=== PATIENT | female | born 1985 | race Two or more races ===

== ENCOUNTER 2016-08-28 17:34 | Emergency (ER) | payer MEDICAID ==
[~2016-08-28] VITALS: Ht 154.9 cm; Wt 104.3 kg
[2016-08-29] MEDS ORDERED: KETOROLAC TROMETH 30 MG/ML 1ML VIAL IV ONE
[2016-08-29] MEDS ORDERED: HYDROmorphone HCL 2 MG/ML VL IM ONE
[2016-08-29] MEDS ORDERED: ONDANSETRON ODT 4 MG TAB PO ONE
[2016-08-29 01:17] VITALS: BP 116/69
== END 2016-08-29 01:47 | disposition home or self-care (01) ==
LOC: ER 17:39
DX: G43.001 Migraine without aura, not intractable, with status migrainosus (principal); M19.90 Unspecified osteoarthritis, unspecified site; R62.50 Unspecified lack of expected normal physiological development in childhood
CPT/HCPCS: 96372; 96374; 99284; J1170; J1885; Q0162

== ENCOUNTER 2017-06-13 11:39 | Emergency (ER) | payer MEDICAID ==
[~2017-06-13] VITALS: Ht 154.9 cm; Wt 108.9 kg
[2017-06-13 11:45] VITALS: BP 117/61
[2017-06-13] MEDS ORDERED: cefTRIAXone SOD 1,000 MG VL IM ONE (13:00)
[2017-06-13] MEDS ORDERED: methylPREDNISolone SOD SUCC 125 MG/2 ML VL IM ONE (13:00)
== END 2017-06-13 13:23 | disposition home or self-care (01) ==
LOC: ER 11:39
DX: J20.9 Acute bronchitis, unspecified (principal); J03.90 Acute tonsillitis, unspecified; H66.91 Otitis media, unspecified, right ear; J45.909 Unspecified asthma, uncomplicated; M19.90 Unspecified osteoarthritis, unspecified site; Z88.6 Allergy status to analgesic agent; Z91.013 Allergy to seafood
CPT/HCPCS: 71046; 96372; 99284; J0696; J2930

== ENCOUNTER 2019-03-18 09:06 | Day surgery (SDC) | payer MEDICAID ==
[2019-03-12 13:16] LABS: Basophils # (auto) 0.1 uL; Basophils % (auto) 0.8 % (0.0-2.0); Eosinophils # (auto) 0.2 uL; Eosinophils % (auto) 2.1 % (0.0-7.0); Hematocrit 41.7 % (36.0-46.0); Hemoglobin 13.8 g/dL (12.2-16.2); Lymphocytes # (auto) 2.9 uL; Lymphocytes % (auto) 30.6 % (10.0-50.0); Mean Corpuscular Hemoglobin 29.7 pg (28.0-32.0); Mean Corpuscular Hgb Conc. 33.2 g/dL (32.0-36.0); Mean Corpuscular Volume 89.5 fL (80.0-100.0); Monocytes # (auto) 0.5 uL; Monocytes % (auto) 5.5 % (0.0-12.0); Neutrophils # (auto) 5.8 uL; Platelet Count (auto) 363 10^3/uL (140-450); Red Blood Cells 4.66 10^6/uL (4.0-5.20); Red Cell Distribution Width 13.6 % (11.8-14.3); White Blood Cell 9.5 10^3/uL (4.4-10.8)
[2019-03-12 13:58] LABS: INR 0.93 (0.9-1.15); Partial Thromboplastin Time 29.9 sec (23.64-32.05)
[2019-03-12 14:03] LABS: Albumin 3.4 g/dL (3.4-5.0); BUN/Creatinine Ratio 13.5; Calcium 8.7 mg/dL (8.5-10.1); Potassium 3.8 mmol/L (3.5-5.1)
[2019-03-12 14:05] LABS: Bilirubin, Total 0.6 mg/dL (0.2-1.0); Total Protein 7.4 g/dL (6.4-8.2)
[~2019-03-18] VITALS: Ht 154.9 cm; Wt 102.1 kg
[~2019-03-18 09:06] MED LIST: ALBUAER3 IN; ARIP1TAB9 PO; DICL1GEL35 TD; FLUT0.05 NAS; RIZA10TA24 OR; TRAM50TA2 PO
[2019-03-18] MEDS ORDERED: PROPOFOL 10 MG/ML 20 ML IV ONE (09:07)
[2019-03-18] MEDS ORDERED: ceFAZolin 1GM/50ML 50 ML IV ONE (10:11)
[2019-03-18] MEDS ORDERED: SODIUM CHLORIDE LOCK 10 ML ONE (11:22)
[2019-03-18] MEDS ORDERED: fentaNYL CITRATE 100 MCG/2 ML VL ONE (11:22)
[2019-03-18] MEDS ORDERED: ONDANSETRON HCL 4 MG/2 ML VIAL ONE (11:22)
[2019-03-18] MEDS ORDERED: MIDAZOLAM HCL 1MG/1ML-2 ML VIAL ONE (11:22)
[2019-03-18] MEDS ORDERED: KETOROLAC TROMETH 30 MG/ML 1ML VIAL IV ONE (11:45)
[2019-03-18] MEDS ORDERED: MORPHINE SULFATE 4 MG/ML SYR/VIAL IV PRN (11:45)
[2019-03-18] MEDS ORDERED: methylPREDNISolone ACETATE 80 MG/ML VL ONE (12:37)
[2019-03-18 13:29] VITALS: BP 111/74
== END 2019-03-18 13:46 | disposition home or self-care (01) ==
LOC: SUR 09:06
PROVIDERS: ATTEND Podiatrist Foot & Ankle Surgery
DX: G57.51 Tarsal tunnel syndrome, right lower limb (principal); J45.909 Unspecified asthma, uncomplicated; M19.90 Unspecified osteoarthritis, unspecified site; F79 Unspecified intellectual disabilities; F90.9 Attention-deficit hyperactivity disorder, unspecified type; F20.9 Schizophrenia, unspecified; E66.01 Morbid (severe) obesity due to excess calories; Z88.5 Allergy status to narcotic agent; Z98.890 Other specified postprocedural states; Z68.41 Body mass index [BMI] 40.0-44.9, adult
CPT/HCPCS: 27626; 36415; 80053; 84702; 85025; 85610; 85730; 88304; J0690; J1040; J2250; J2405; J2704; J3010; L3260

== ENCOUNTER 2019-04-12 09:24 | Emergency (ER) | payer MEDICAID ==
[~2019-04-12] VITALS: Ht 154.9 cm; Wt 106.6 kg
[2019-04-12 09:51] LABS: Basophils # (auto) 0.1 uL; Basophils % (auto) 0.6 % (0.0-2.0); Eosinophils # (auto) 0.3 uL; Eosinophils % (auto) 2.4 % (0.0-7.0); Hematocrit 37.7 % (36.0-46.0); Hemoglobin 12.8 g/dL (12.2-16.2); Lymphocytes # (auto) 2.2 uL; Lymphocytes % (auto) 17.3 % (10.0-50.0); Mean Corpuscular Hemoglobin 30.3 pg (28.0-32.0); Monocytes # (auto) 0.8 uL; Monocytes % (auto) 6.5 % (0.0-12.0); Neutrophils # (auto) 9.3 uL; Neutrophils % (auto) 73.2 % (37.0-80.0); Platelet Count (auto) 319 10^3/uL (140-450); Red Blood Cells 4.24 10^6/uL (4.0-5.20); Red Cell Distribution Width 13.9 % (11.8-14.3); White Blood Cell 12.7 10^3/uL (4.4-10.8)
[2019-04-12 10:08] LABS: Alanine Aminotransferase 16 U/L (13-56); Anion Gap 6 (5-15); Aspartate Aminotransferase 10 U/L (15-37); BUN/Creatinine Ratio 12.1; Blood Urea Nitrogen 7 mg/dL (7-18); Calcium 8.1 mg/dL (8.5-10.1); Carbon Dioxide 25 mmol/L (21-32); Chloride 110 mmol/L (98-107); GFR African American 154 mL/min; GFR Non-African American 127 mL/min; Glucose 94 mg/dL (74-106); Potassium 3.3 mmol/L (3.5-5.1); Sodium 141 mmol/L (136-145)
[2019-04-12 10:16] LABS: Alkaline Phosphatase 145 U/L (45-117); Bilirubin, Total 0.6 mg/dL (0.2-1.0); Total Protein 7.2 g/dL (6.4-8.2)
[2019-04-12 10:23] LABS: Urine Bacteria FEW /hpf (None Seen); Urine Blood 1+ /uL (Negative); Urine Hyaline Cast FEW /lpf (0 - 2); Urine Mucus FEW (None Seen); Urine Specific Gravity 1.012 (1.001-1.035); Urine WBC 2 /hpf (0 - 5)
[2019-04-12] MEDS ORDERED: POTASSIUM EFFERVESENT TAB 25 MEQ PO ONE (10:45)
[2019-04-12 14:00] VITALS: BP 103/50
== END 2019-04-12 15:09 | disposition home or self-care (01) ==
LOC: ER 09:24
DX: R10.84 Generalized abdominal pain (principal); E46 Unspecified protein-calorie malnutrition; E87.6 Hypokalemia; J45.909 Unspecified asthma, uncomplicated; R19.7 Diarrhea, unspecified; R42 Dizziness and giddiness; R11.2 Nausea with vomiting, unspecified
CPT/HCPCS: 36415; 71045; 74176; 80053; 81001; 84484; 85025

== ENCOUNTER → 2020-06-28 | Outpatient (CLI) | payer MEDICAID ==
[~2020-06-28] MED LIST changes: -DICL1GEL35 TD; +DICL1GEL50 TD; -RIZA10TA24 OR; +RIZA10TA50 OR
== END | disposition home or self-care (01) ==
LOC: LAB 11:19
PROVIDERS: ATTEND Podiatrist
DX: L57.0 Actinic keratosis (principal)

== ENCOUNTER 2021-03-02 12:01 | Emergency (ER) | payer MEDICARE, MEDICAID ==
[~2021-03-02] VITALS: Ht 154.9 cm; Wt 108.9 kg
[2021-03-02] MEDS ORDERED: methylPREDNISolone SOD SUCC 125 MG/2 ML VL IM ONE (12:15)
[2021-03-02] MEDS ORDERED: IPRATROPIUM BROM 0.5 MG/2.5ML INH SOL NEB ONE (12:15)
[2021-03-02] MEDS ORDERED: ALBUTEROL SULF 2.5 MG/0.5ML(0.5%) NEB SOLN NEB ONE (12:15)
[2021-03-02 13:39] LABS: Basophils # (auto) 0.1 10 ^3/uL (0-0.2); Eosinophils # (auto) 0.5 10 ^3/uL (0-0.8); Eosinophils % (auto) 3.9 % (0.0-7.0); Hematocrit 38.3 % (36.0-46.0); Hemoglobin 12.8 g/dL (12.2-16.2); Lymphocytes # (auto) 3.2 10 ^3/uL (0.4-5.4); Lymphocytes % (auto) 23.4 % (10.0-50.0); Mean Corpuscular Hemoglobin 28.2 pg (28.0-32.0); Mean Corpuscular Hgb Conc. 33.4 g/dL (32.0-36.0); Mean Corpuscular Volume 84.7 fL (80.0-100.0); Monocytes # (auto) 0.8 10 ^3/uL (0-1.3); Monocytes % (auto) 6.1 % (0.0-12.0); Neutrophils % (auto) 65.6 % (37.0-80.0); Nucleated Red Blood Cells % 0.1 %; Red Blood Cells 4.52 10^6/uL (4.0-5.20); Red Cell Distribution Width 16.3 % (11.8-14.3); White Blood Cell 13.7 10^3/uL (4.4-10.8)
[2021-03-02 13:47] LABS: Albumin 3.1 g/dL (3.4-5.0); Anion Gap 7 (5-15); Blood Urea Nitrogen 8 mg/dL (7-18); Calcium 8.4 mg/dL (8.5-10.1); Carbon Dioxide 26 mmol/L (21-32); Chloride 107 mmol/L (98-107); Glucose 92 mg/dL (74-106); Potassium 3.4 mmol/L (3.5-5.1); Sodium 140 mmol/L (136-145)
[2021-03-02 13:49] LABS: Alanine Aminotransferase 21 U/L (13-56); Aspartate Aminotransferase 13 U/L (15-37); BUN/Creatinine Ratio 13.3; GFR African American 146 mL/min; GFR Non-African American 121 mL/min
[2021-03-02 13:55] LABS: Alkaline Phosphatase 122 U/L (45-117); Bilirubin, Total 0.5 mg/dL (0.2-1.0)
[2021-03-02] MEDS ORDERED: POTASSIUM EFFERVESENT TAB 25 MEQ PO ONE (14:00)
[2021-03-02 15:21] VITALS: BP 126/54
== END 2021-03-02 16:07 | disposition home or self-care (01) ==
LOC: ER 12:01
DX: J45.901 Unspecified asthma with (acute) exacerbation (principal); R07.89 Other chest pain; E87.6 Hypokalemia; Z79.899 Other long term (current) drug therapy; Z88.8 Allergy status to other drugs, medicaments and biological substances; Z88.5 Allergy status to narcotic agent; Z91.013 Allergy to seafood
CPT/HCPCS: 36415; 71045; 80053; 84484; 85025; 93005; 94640; 96372; 99285; J2930; J7644

== ENCOUNTER 2021-10-26 07:59 | Emergency (ER) | payer MEDICARE, MEDICAID ==
[~2021-10-26] VITALS: Ht 154.9 cm; Wt 113.4 kg
[2021-10-26 08:10] VITALS: BP 111/46
[2021-10-26 08:47] LABS: Hematocrit 32.3 % (36.0-46.0); Hemoglobin 10.9 g/dL (12.2-16.2); Mean Corpuscular Hemoglobin 27.9 pg (28.0-32.0); Mean Corpuscular Hgb Conc. 33.6 g/dL (32.0-36.0); Mean Corpuscular Volume 83.2 fL (80.0-100.0); Red Blood Cells 3.89 10^6/uL (4.0-5.20); Red Cell Distribution Width 13.9 % (11.8-14.3); White Blood Cell 7.3 10^3/uL (4.4-10.8)
[2021-10-26 08:51] LABS: Band Neutrophils % (manual) 0; Basophils % (manual) 0 (0.0-2.0); Blast Cells 0; Metamyelocytes % 0; Myelocytes % 0; Promyelocytes % 0; Reactive Lymphocytes 0
[2021-10-26 09:10] LABS: Calcium 8.1 mg/dL (8.5-10.1); Potassium 3.7 mmol/L (3.5-5.1)
[2021-10-26 09:13] LABS: BUN/Creatinine Ratio 14.5; Bilirubin, Total 0.4 mg/dL (0.2-1.0); Total Protein 6.9 g/dL (6.4-8.2)
[2021-10-26 09:26] LABS: Eosinophils % (manual) 18 (0-7); Lymphocytes % (manual) 24 (10.0-50.0); Monocytes % (manual) 6 (0-12)
[2021-10-26] MEDS ORDERED: ALBUTEROL SULF 2.5 MG/0.5ML(0.5%) NEB SOLN NEB ONE (12:30)
[2021-10-26] MEDS ORDERED: IPRATROPIUM BROM 0.5 MG/2.5ML INH SOL NEB ONE (12:30)
[2021-10-26] MEDS ORDERED: MECLIZINE HCL 25 MG TAB PO ONE (12:30)
[2021-10-26] MEDS ORDERED: methylPREDNISolone SOD SUCC 125 MG/2 ML VL IV ONE (12:30)
[2021-10-26] MEDS ORDERED: methylPREDNISolone SOD SUCC 125 MG/2 ML VL IM ONE (16:30)
== END 2021-10-26 18:36 | disposition home or self-care (01) ==
LOC: ER 07:59
DX: U07.1 COVID-19 (principal); R42 Dizziness and giddiness; Q78.1 Polyostotic fibrous dysplasia; J45.909 Unspecified asthma, uncomplicated
CPT/HCPCS: 36415; 71045; 80053; 85007; 85027; 87070; 87426; 87880; 93005; 94640; 96372; 99285; J2930; J7644; J8597

== ENCOUNTER → 2022-11-23 | Outpatient (CLI) | payer OTHER, MEDICAID ==
[~2022-11-23] MED LIST changes: +ALBUTEROL SULF 2.5 MG/0.5ML(0.5%) NEB SOLN ONE; -DICL1GEL50 TD; +DICL1GEL73 TD
== END | disposition home or self-care (01) ==
LOC: RT 12:34
PROVIDERS: ATTEND Internal Medicine Pulmonary Disease
DX: R06.02 Shortness of breath (principal); R06.09 Other forms of dyspnea
CPT/HCPCS: 94060; 94727; 94729

== ENCOUNTER 2023-02-26 14:47 | Emergency (ER) | payer OTHER, MEDICAID ==
[~2023-02-26] VITALS: Ht 154.9 cm; Wt 106.7 kg
[~2023-02-26 14:47] MED LIST changes: -ALBUTEROL SULF 2.5 MG/0.5ML(0.5%) NEB SOLN ONE
[2023-02-26] MEDS ORDERED: IPRATROPIUM BROM 0.5 MG/2.5ML INH SOL NEB ONE (15:15)
[2023-02-26] MEDS ORDERED: methylPREDNISolone SOD SUCC 40 MG/ML VL IV ONE (15:15)
[2023-02-26] MEDS ORDERED: ALBUTEROL SULF 2.5 MG/0.5ML(0.5%) NEB SOLN NEB ONE (15:15)
[2023-02-26 15:42] LABS: Basophils # (auto) 0.1 10 ^3/uL (0-0.2); Basophils % (auto) 0.6 % (0.0-2.0); Eosinophils # (auto) 0.1 10 ^3/uL (0-0.8); Eosinophils % (auto) 1.2 % (0.0-7.0); Hematocrit 37.7 % (36.0-46.0); Hemoglobin 12.7 g/dL (12.2-16.2); Lymphocytes # (auto) 2.9 10 ^3/uL (0.4-5.4); Lymphocytes % (auto) 28.8 % (10.0-50.0); Mean Corpuscular Hemoglobin 29.1 pg (28.0-32.0); Mean Corpuscular Hgb Conc. 33.9 g/dL (32.0-36.0); Mean Corpuscular Volume 85.9 fL (80.0-100.0); Monocytes # (auto) 0.6 10 ^3/uL (0-1.3); Monocytes % (auto) 5.8 % (0.0-12.0); Neutrophils # (auto) 6.5 10 ^3/uL (1.6-8.6); Neutrophils % (auto) 63.6 % (37.0-80.0); Nucleated Red Blood Cells % 0.1 %; Red Blood Cells 4.38 10^6/uL (4.0-5.20); Red Cell Distribution Width 14.2 % (11.8-14.3); White Blood Cell 10.2 10^3/uL (4.4-10.8)
[2023-02-26 15:47] LABS: Alanine Aminotransferase 14 U/L (7-40); Albumin 4.2 g/dL (3.2-4.8); Alkaline Phosphatase 125 U/L (46-116); Anion Gap 5 (5-15); Aspartate Aminotransferase 13 U/L (13-40); BUN/Creatinine Ratio 12.8 (10.0-20.0); Bilirubin, Total 0.5 mg/dL (0.2-1.0); Blood Urea Nitrogen 11 mg/dL (9-23); Calcium 8.8 mg/dL (8.7-10.4); Carbon Dioxide 26 mmol/L (20-30); Chloride 109 mmol/L (98-107); Glucose 101 mg/dL (74-106); Potassium 3.8 mmol/L (3.5-5.1); Sodium 140 mmol/L (136-145); Total Protein 6.6 g/dL (5.7-8.2)
[2023-02-26] MEDS ORDERED: KETOROLAC TROMETH 30 MG/ML 1ML VIAL IV ONE (16:15)
[2023-02-26] MEDS ORDERED: PRED20TA2 PO (19:30)
[2023-02-26 22:03] VITALS: BP 116/66; PULSE 80; RESP 18; TEMP 98.1; O2SAT 96
== END 2023-02-26 21:43 | disposition home or self-care (01) ==
LOC: ER 14:47
DX: R06.00 Dyspnea, unspecified (principal); M19.90 Unspecified osteoarthritis, unspecified site; J45.909 Unspecified asthma, uncomplicated; F20.9 Schizophrenia, unspecified; J44.9 Chronic obstructive pulmonary disease, unspecified; Z98.890 Other specified postprocedural states
CPT/HCPCS: 36415; 36600; 71046; 80053; 82805; 83880; 84484; 85025; 85379; 93005; 94640; 96374; 96375; 99285; J1885; J2920; J7644

== ENCOUNTER 2023-10-31 17:31 | Inpatient (IN) | payer OTHER, MEDICAID ==
[~2023-10-31] VITALS: Ht 154.9 cm; Wt 110.3 kg
[~2023-10-31 17:31] MED LIST changes: -ARIP1TAB9 PO; +ARIP30TA2 PO; +PRED20TA2 PO
[2023-10-31 19:04] LABS: Urine Bacteria None Seen /hpf (None Seen)
[2023-10-31 19:16] LABS: Basophils # (auto) 0 10 ^3/uL (0-0.2); Eosinophils # (auto) 0 10 ^3/uL (0-0.8); Hemoglobin 13.4 g/dL (12.2-16.2); Monocytes # (auto) 0.5 10 ^3/uL (0-1.3); Neutrophils # (auto) 18.4 10 ^3/uL (1.6-8.6)
[2023-10-31 19:19] LABS: Basophils % (auto) 0.1 % (0.0-2.0); Hematocrit 40.4 % (36.0-46.0); Lymphocytes # (auto) 1.5 10 ^3/uL (0.4-5.4); Lymphocytes % (auto) 7.5 % (10.0-50.0); Mean Corpuscular Hemoglobin 29.1 pg (28.0-32.0); Mean Corpuscular Hgb Conc. 33.1 g/dL (32.0-36.0); Monocytes % (auto) 2.5 % (0.0-12.0); Neutrophils % (auto) 89.9 % (37.0-80.0); Red Blood Cells 4.59 10^6/uL (4.0-5.20); Red Cell Distribution Width 14.4 % (11.8-14.3); White Blood Cell 20.4 10^3/uL (4.4-10.8)
[2023-10-31 19:37] LABS: Alanine Aminotransferase 18 U/L (7-40); Albumin 4.4 g/dL (3.2-4.8); Alkaline Phosphatase 110 U/L (46-116); Anion Gap 8 (5-15); Aspartate Aminotransferase 10 U/L (13-40); Blood Urea Nitrogen 12 mg/dL (9-23); Calcium 9.7 mg/dL (8.7-10.4); Carbon Dioxide 22 mmol/L (20-30); Chloride 109 mmol/L (98-107); Glucose 117 mg/dL (74-106); Lipase 33 U/L (12-53); Potassium 4.4 mmol/L (3.5-5.1); Sodium 139 mmol/L (136-145)
[2023-10-31 19:38] LABS: Bilirubin, Total 0.7 mg/dL (0.2-1.0); Total Protein 7.3 g/dL (5.7-8.2)
[2023-10-31 19:43] LABS: Urine Blood 2+ /uL (Negative); Urine Clarity Clear (Clear); Urine Color Light-Yellow (Yellow); Urine Mucus FEW (None Seen); Urine Protein, UAD Negative (Negative); Urine Urobilinogen Normal (Negative); Urine WBC 2 /hpf (0 - 5); Urine pH 5.5 (5.0-9.0)
[2023-10-31] MEDS: metroNIDAZOLE 500MG/100ML 100 ML IV ONE (22:00)
[2023-10-31] MEDS ORDERED: TIOT17SP INH (22:54)
[2023-10-31] MEDS ORDERED: BUSP30TA PO (22:54)
[2023-10-31] MEDS ORDERED: METH-1181 PO (22:54)
[2023-10-31] MEDS ORDERED: NITROGLYCERIN 0.4 MG SL TAB SL PRN (23:15)
[2023-10-31] MEDS ORDERED: MORPHINE SULFATE INJ 2 MG/ml SYRG IV PRN (23:15)
[2023-10-31] MEDS ORDERED: CLON-853 PO (23:26)
[2023-10-31] MEDS ORDERED: TOLT1CAP29 PO (23:26)
[2023-10-31] MEDS ORDERED: LAMO25TA27 PO (23:26)
[2023-10-31] MEDS ORDERED: Rizatriptan Benzoate 10 MG TAB PO PRN (23:30)
[2023-10-31] MEDS ORDERED: IPRATROPIUM BROM 0.5 MG/2.5ML INH SOL NEB PRN (23:30)
[2023-11-01] VITALS (12 sets, daily range): BP systolic 101–111; BP diastolic 52–54; PULSE 52–82; RESP 14–20; TEMP 97.5–98.3; O2SAT 94–100
[2023-11-01] MEDS: SODIUM CHLORIDE 0.9% 1,000 ML IV ONE (00:31)
[2023-11-01] MEDS: levoFLOXacin 500MG 100 ML IV ONE (00:53)
[2023-11-01] MEDS: KETOROLAC TROMETH 30 MG/ML 1ML VIAL IV ONE (00:53)
[2023-11-01] MEDS: IPRATROPIUM BROM 0.5 MG/2.5ML INH SOL NEB SCH (00:59)
[2023-11-01 03:01] LABS: Basophils # (auto) 0 10 ^3/uL (0-0.2); Eosinophils # (auto) 0 10 ^3/uL (0-0.8); Eosinophils % (auto) 0.1 % (0.0-7.0); Hematocrit 38.1 % (36.0-46.0); Hemoglobin 12.5 g/dL (12.2-16.2); White Blood Cell 18.6 10^3/uL (4.4-10.8)
[2023-11-01 03:04] LABS: Basophils % (auto) 0.1 % (0.0-2.0); Lymphocytes # (auto) 2.6 10 ^3/uL (0.4-5.4); Lymphocytes % (auto) 14.2 % (10.0-50.0); Mean Corpuscular Hemoglobin 29.2 pg (28.0-32.0); Mean Corpuscular Hgb Conc. 32.8 g/dL (32.0-36.0); Mean Corpuscular Volume 88.9 fL (80.0-100.0); Monocytes # (auto) 0.9 10 ^3/uL (0-1.3); Neutrophils % (auto) 80.6 % (37.0-80.0); Nucleated Red Blood Cells % 0.1 %; Red Blood Cells 4.28 10^6/uL (4.0-5.20); Red Cell Distribution Width 14.5 % (11.8-14.3)
[2023-11-01 03:09] LABS: Alanine Aminotransferase 14 U/L (7-40); Alkaline Phosphatase 101 U/L (46-116); Anion Gap 11 (5-15); Aspartate Aminotransferase < 8 U/L (13-40); Bilirubin, Total 0.9 mg/dL (0.2-1.0); Blood Urea Nitrogen 11 mg/dL (9-23); Calcium 9.1 mg/dL (8.7-10.4); Carbon Dioxide 22 mmol/L (20-30); Chloride 108 mmol/L (98-107); Glucose 105 mg/dL (74-106); Potassium 3.8 mmol/L (3.5-5.1); Sodium 141 mmol/L (136-145); Total Protein 6.6 g/dL (5.7-8.2)
[2023-11-01] MEDS: metroNIDAZOLE 500MG/100ML 100 ML IV SCH (06:00)
[2023-11-01] MEDS: METHOCARBAMOL 500 MG TAB PO SCH (06:59)
[2023-11-01] MEDS: SODIUM CHLORIDE 0.9% 1,000 ML IV SCH (06:59)
[2023-11-01] MEDS: OXYBUTYNIN CHL 5 MG TAB PO SCH (06:59)
[2023-11-01] MEDS: ALBUTEROL SULF 2.5 MG/0.5ML(0.5%) NEB SOLN NEB PRN (07:37)
[2023-11-01] MEDS: lamoTRIgine 25 MG TAB PO SCH (13:45)
[2023-11-01] MEDS: busPIRone HCL 10 MG TAB PO SCH (13:45)
[2023-11-01] MEDS: ONDANSETRON HCL 4 MG/2 ML VIAL IV PRN (16:39)
[2023-11-01] MEDS: clonazePAM 0.5 MG TAB PO PRN (16:39)
[2023-11-01] MEDS: KETOROLAC TROMETH 30 MG/ML 1ML VIAL IV PRN (16:39)
[2023-11-01] MEDS: metroNIDAZOLE 500 MG TAB PO SCH (21:45)
[2023-11-01] MEDS: PIPERACILLIN-TAZOB 3.375GM 100 ML IV SCH (21:46)
[2023-11-02] VITALS (16 sets, daily range): BP systolic 103–132; BP diastolic 47–69; PULSE 47–84; RESP 16–20; TEMP 97.5–98.3; O2SAT 95–99
[2023-11-02] MEDS: BISACODYL 10 MG RECT SUPP PR ONE (13:30)
[2023-11-02 14:11] LABS: Basophils # (auto) 0.1 10 ^3/uL (0-0.2); Basophils % (auto) 0.3 % (0.0-2.0); Eosinophils # (auto) 0.1 10 ^3/uL (0-0.8); Eosinophils % (auto) 0.4 % (0.0-7.0); Lymphocytes # (auto) 3.3 10 ^3/uL (0.4-5.4); Lymphocytes % (auto) 21.5 % (10.0-50.0); Mean Corpuscular Hemoglobin 29.8 pg (28.0-32.0); Mean Corpuscular Hgb Conc. 33.3 g/dL (32.0-36.0); Mean Corpuscular Volume 89.5 fL (80.0-100.0); Monocytes # (auto) 0.9 10 ^3/uL (0-1.3); Monocytes % (auto) 5.9 % (0.0-12.0); Neutrophils # (auto) 11.1 10 ^3/uL (1.6-8.6); Neutrophils % (auto) 71.9 % (37.0-80.0); Red Blood Cells 4.03 10^6/uL (4.0-5.20); Red Cell Distribution Width 14.6 % (11.8-14.3); White Blood Cell 15.5 10^3/uL (4.4-10.8)
[2023-11-03] VITALS (18 sets, daily range): BP systolic 107–129; BP diastolic 56–73; PULSE 54–95; RESP 16–20; TEMP 97.6–98.4; O2SAT 94–99
[2023-11-04] VITALS (17 sets, daily range): BP systolic 118–127; BP diastolic 68–75; PULSE 58–109; RESP 16–20; TEMP 97.7–98.1; O2SAT 93–100
[2023-11-04 06:54] LABS: Basophils # (auto) 0.1 10 ^3/uL (0-0.2); Basophils % (auto) 0.5 % (0.0-2.0); Eosinophils # (auto) 0.1 10 ^3/uL (0-0.8); Eosinophils % (auto) 0.5 % (0.0-7.0); Hematocrit 36.2 % (36.0-46.0); Hemoglobin 12.1 g/dL (12.2-16.2); Lymphocytes # (auto) 3.4 10 ^3/uL (0.4-5.4); Lymphocytes % (auto) 22.2 % (10.0-50.0); Mean Corpuscular Hemoglobin 30.1 pg (28.0-32.0); Mean Corpuscular Hgb Conc. 33.4 g/dL (32.0-36.0); Monocytes # (auto) 0.9 10 ^3/uL (0-1.3); Neutrophils % (auto) 70.8 % (37.0-80.0); Red Blood Cells 4.02 10^6/uL (4.0-5.20); Red Cell Distribution Width 14.4 % (11.8-14.3)
[2023-11-04 07:13] LABS: White Blood Cell 15.5 10^3/uL (4.4-10.8)
[2023-11-04 10:08] LABS: Erythrocyte Sedimentation Rate 10 mm/hr (0-20)
[2023-11-04] MEDS: MEROPENEM 1GM IVPB 50 ML IV SCH (22:21)
[2023-11-05] VITALS (12 sets, daily range): BP systolic 105–134; BP diastolic 51–79; PULSE 73–98; RESP 16–20; TEMP 97.9–98.2; O2SAT 94–99
[2023-11-05 07:11] LABS: Basophils # (auto) 0.1 10 ^3/uL (0-0.2); Basophils % (auto) 0.4 % (0.0-2.0); Eosinophils # (auto) 0.1 10 ^3/uL (0-0.8); Eosinophils % (auto) 0.4 % (0.0-7.0); Hematocrit 36.5 % (36.0-46.0); Hemoglobin 11.8 g/dL (12.2-16.2); Lymphocytes # (auto) 3.1 10 ^3/uL (0.4-5.4); Lymphocytes % (auto) 16.5 % (10.0-50.0); Mean Corpuscular Hemoglobin 29.8 pg (28.0-32.0); Mean Corpuscular Hgb Conc. 32.2 g/dL (32.0-36.0); Mean Corpuscular Volume 92.6 fL (80.0-100.0); Monocytes # (auto) 1.3 10 ^3/uL (0-1.3); Monocytes % (auto) 7.1 % (0.0-12.0); Neutrophils # (auto) 14.1 10 ^3/uL (1.6-8.6); Neutrophils % (auto) 75.6 % (37.0-80.0); Red Blood Cells 3.94 10^6/uL (4.0-5.20); Red Cell Distribution Width 14.8 % (11.8-14.3); White Blood Cell 18.6 10^3/uL (4.4-10.8)
[2023-11-05 07:18] LABS: Anion Gap 9 (5-15); Calcium 8.8 mg/dL (8.7-10.4); Carbon Dioxide 24 mmol/L (20-30); Chloride 109 mmol/L (98-107); Potassium 3.8 mmol/L (3.5-5.1); Sodium 142 mmol/L (136-145)
[2023-11-05 07:24] LABS: Glucose 90 mg/dL (74-106)
[2023-11-05 07:29] LABS: BUN/Creatinine Ratio 6.7 (10.0-20.0); Blood Urea Nitrogen < 5 mg/dL (9-23)
[2023-11-05] MEDS: PHENAZOPYRIDINE HCL 100 MG TAB PO SCH (13:43)
[2023-11-06] VITALS (15 sets, daily range): BP systolic 100–125; BP diastolic 46–71; PULSE 66–111; RESP 17–20; TEMP 97.6–98.3; O2SAT 92–100
[2023-11-06 06:46] LABS: Basophils # (auto) 0.1 10 ^3/uL (0-0.2); Basophils % (auto) 0.4 % (0.0-2.0); Eosinophils # (auto) 0.1 10 ^3/uL (0-0.8); Eosinophils % (auto) 0.4 % (0.0-7.0); Hematocrit 34.6 % (36.0-46.0); Hemoglobin 11.7 g/dL (12.2-16.2); Lymphocytes # (auto) 3.2 10 ^3/uL (0.4-5.4); Lymphocytes % (auto) 20.9 % (10.0-50.0); Mean Corpuscular Hemoglobin 29.9 pg (28.0-32.0); Mean Corpuscular Hgb Conc. 33.7 g/dL (32.0-36.0); Mean Corpuscular Volume 88.6 fL (80.0-100.0); Monocytes # (auto) 0.9 10 ^3/uL (0-1.3); Monocytes % (auto) 6.2 % (0.0-12.0); Neutrophils # (auto) 10.9 10 ^3/uL (1.6-8.6); Neutrophils % (auto) 72.1 % (37.0-80.0); Red Blood Cells 3.91 10^6/uL (4.0-5.20); Red Cell Distribution Width 14.7 % (11.8-14.3); White Blood Cell 15.1 10^3/uL (4.4-10.8)
[2023-11-06 07:01] LABS: Anion Gap 2 (5-15); Carbon Dioxide 28 mmol/L (20-30); Chloride 111 mmol/L (98-107); INR 1.03 (0.9-1.15); Partial Thromboplastin Time 28.1 SEC (24.5-34.5); Potassium 3.8 mmol/L (3.5-5.1); Prothrombin Time 10.9 sec (9.3-11.8); Sodium 141 mmol/L (136-145)
[2023-11-06 07:03] LABS: Calcium 8.8 mg/dL (8.5-10.1)
[2023-11-06 07:07] LABS: Glucose 94 mg/dL (74-106)
[2023-11-06 07:15] LABS: BUN/Creatinine Ratio 7.2 (10.0-20.0); Blood Urea Nitrogen < 5 mg/dL (9-23)
[2023-11-06] MEDS ORDERED: fentaNYL CITRATE 100 MCG/2 ML VL ONE (13:10)
[2023-11-06] MEDS ORDERED: MIDAZOLAM HCL 2MG/2ML 2ml VIAL (1mg/ml) ONE (13:10)
[2023-11-06] MEDS ORDERED: GLYCOPYRROLATE 0.2 MG/ML 1ML VIAL ONE (13:11)
[2023-11-06] MEDS ORDERED: PROPOFOL 10 MG/ML 20 ML IV ONE (13:11)
[2023-11-06] MEDS ORDERED: ONDANSETRON HCL 4 MG/2 ML VIAL ONE (13:11)
[2023-11-06] MEDS ORDERED: FAMOTIDINE (10MG/ML) 2ML VL IV ONE (13:17)
[2023-11-06] MEDS: SUCRALFATE 1 GM/10 ML ORAL SUSP GT SCH (18:35)
[2023-11-07] VITALS (18 sets, daily range): BP systolic 92–142; BP diastolic 43–72; PULSE 63–103; RESP 16–18; TEMP 98.1–98.5; O2SAT 90–98
[2023-11-07 07:18] LABS: Basophils # (auto) 0 10 ^3/uL (0-0.2); Basophils % (auto) 0.3 % (0.0-2.0); Eosinophils # (auto) 0 10 ^3/uL (0-0.8); Hematocrit 36.1 % (36.0-46.0); Hemoglobin 12.2 g/dL (12.2-16.2); Lymphocytes # (auto) 0.9 10 ^3/uL (0.4-5.4); Lymphocytes % (auto) 5.4 % (10.0-50.0); Mean Corpuscular Hemoglobin 30.5 pg (28.0-32.0); Mean Corpuscular Hgb Conc. 33.7 g/dL (32.0-36.0); Mean Corpuscular Volume 90.4 fL (80.0-100.0); Monocytes # (auto) 0.4 10 ^3/uL (0-1.3); Monocytes % (auto) 2.6 % (0.0-12.0); Neutrophils # (auto) 15.8 10 ^3/uL (1.6-8.6); Neutrophils % (auto) 91.7 % (37.0-80.0); Red Cell Distribution Width 14.5 % (11.8-14.3); White Blood Cell 17.2 10^3/uL (4.4-10.8)
[2023-11-07] MEDS: BUDESONIDE (INHALATION) 0.5 MG/2 ML NEB NEB SCH (12:56)
[2023-11-08] VITALS (9 sets, daily range): BP systolic 106–114; BP diastolic 52–59; PULSE 62–74; RESP 16–20; TEMP 97.8–98.5; O2SAT 94–98
[2023-11-08] MEDS: ONDANSETRON HCL 4 MG/2 ML VIAL IV ONE (03:08)
[2023-11-08 07:47] LABS: Basophils # (auto) 0.1 10 ^3/uL (0-0.2); Basophils % (auto) 0.4 % (0.0-2.0); Eosinophils # (auto) 0 10 ^3/uL (0-0.8); Eosinophils % (auto) 0.1 % (0.0-7.0); Hematocrit 34.2 % (36.0-46.0); Hemoglobin 11.1 g/dL (12.2-16.2); Lymphocytes # (auto) 4.3 10 ^3/uL (0.4-5.4); Lymphocytes % (auto) 22.6 % (10.0-50.0); Mean Corpuscular Hemoglobin 29.8 pg (28.0-32.0); Mean Corpuscular Hgb Conc. 32.5 g/dL (32.0-36.0); Mean Corpuscular Volume 91.5 fL (80.0-100.0); Monocytes # (auto) 1.2 10 ^3/uL (0-1.3); Monocytes % (auto) 6.4 % (0.0-12.0); Neutrophils # (auto) 13.3 10 ^3/uL (1.6-8.6); Neutrophils % (auto) 70.5 % (37.0-80.0); Nucleated Red Blood Cells % 0.4 %; Red Blood Cells 3.74 10^6/uL (4.0-5.20); Red Cell Distribution Width 15.1 % (11.8-14.3); White Blood Cell 18.9 10^3/uL (4.4-10.8)
[2023-11-08 08:29] LABS: Platelet Estimate Adequate
[2023-11-08] MEDS ORDERED: MET500T PO (09:58)
[2023-11-08] MEDS ORDERED: CIPR500T4 PO (09:58)
== END 2023-11-08 11:08 | disposition home or self-care (01) | DRG 872 ==
LOC: ER 17:31 → TELE 23:17 → TELE-EAST 23:57 → TELE 23:57 → TELE-E-ADS 11-01 11:15 → TELE-EAST 11-01 16:04
PROVIDERS: ADMIT Internal Medicine; ATTEND Nurse Practitioner Acute Care
PROC: 0DB68ZX Excision of Stomach, Via Natural or Artificial Opening Endoscopic, Diagnostic (ICD-10-PCS; 2023-11-06)
PROC: 0DB98ZX Excision of Duodenum, Via Natural or Artificial Opening Endoscopic, Diagnostic (ICD-10-PCS; principal; 2023-11-06 13:19)
DX: A41.9 Sepsis, unspecified organism (principal); N39.0 Urinary tract infection, site not specified; J45.901 Unspecified asthma with (acute) exacerbation; Z68.45 Body mass index [BMI] 70 or greater, adult; A09 Infectious gastroenteritis and colitis, unspecified; J44.89 Other specified chronic obstructive pulmonary disease; R56.9 Unspecified convulsions; F20.9 Schizophrenia, unspecified; G62.9 Polyneuropathy, unspecified; N32.81 Overactive bladder; E66.01 Morbid (severe) obesity due to excess calories; K25.9 Gastric ulcer, unspecified as acute or chronic, without hemorrhage or perforation; M19.09 Primary osteoarthritis, other specified site; K29.70 Gastritis, unspecified, without bleeding; K44.9 Diaphragmatic hernia without obstruction or gangrene; R62.50 Unspecified lack of expected normal physiological development in childhood; Q78.1 Polyostotic fibrous dysplasia; Z79.899 Other long term (current) drug therapy; Z91.013 Allergy to seafood; Z88.6 Allergy status to analgesic agent
CPT/HCPCS: 36415; 71045; 74176; 76775; 80048; 80053; 81001; 82378; 83690; 84702; 85025; 85048; 85610; 85652; 85730; 86850; 86900; 86901; 87040; 87045; 87086; 87427; 87493; 94640; G0378; J1885; J1956; J2185; J2250; J2405; J2543; J2704; J3490

== ENCOUNTER 2023-12-19 10:20 | Inpatient (IN) | payer OTHER, MEDICAID ==
[~2023-12-19] VITALS: Ht 154.9 cm; Wt 110.2 kg
[~2023-12-19 10:20] MED LIST changes: +BUSP30TA PO; +CIPR500T4 PO; +CLON-853 PO; +LAMO25TA27 PO; +MET500T PO; +METH-1181 PO; -PRED20TA2 PO; +TIOT17SP INH; +TOLT1CAP29 PO
[2023-12-19 11:03] LABS: Urine Bacteria None Seen /hpf (None Seen)
[2023-12-19] MEDS: cefTRIAXone 1GM/50ML D5W 50 ML IV ONE (11:18)
[2023-12-19] MEDS: SODIUM CHLORIDE 0.9% 1,000 ML IV ONE (11:18)
[2023-12-19 11:20] VITALS: PULSE 71; RESP 18; O2SAT 96
[2023-12-19 11:29] LABS: Urine Blood 3+ /uL (Negative); Urine Clarity Clear (Clear); Urine Color Light-Yellow (Yellow); Urine Mucus FEW (None Seen); Urine Protein, UAD Negative (Negative); Urine Specific Gravity 1.017 (1.001-1.035); Urine Urobilinogen Normal (Negative); Urine WBC 3 /hpf (0 - 5)
[2023-12-19 11:52] LABS: Basophils # (auto) 0.1 10 ^3/uL (0-0.2); Basophils % (auto) 0.8 % (0.0-2.0); Eosinophils # (auto) 0.6 10 ^3/uL (0-0.8); Eosinophils % (auto) 3.8 % (0.0-7.0); Hematocrit 38.6 % (36.0-46.0); Hemoglobin 12.6 g/dL (12.2-16.2); Lymphocytes # (auto) 2.7 10 ^3/uL (0.4-5.4); Lymphocytes % (auto) 18.8 % (10.0-50.0); Mean Corpuscular Hemoglobin 29.9 pg (28.0-32.0); Mean Corpuscular Hgb Conc. 32.7 g/dL (32.0-36.0); Mean Corpuscular Volume 91.4 fL (80.0-100.0); Monocytes % (auto) 6.9 % (0.0-12.0); Neutrophils % (auto) 69.7 % (37.0-80.0); Nucleated Red Blood Cells % 0.1 %; Red Blood Cells 4.22 10^6/uL (4.0-5.20); Red Cell Distribution Width 14.9 % (11.8-14.3); White Blood Cell 14.4 10^3/uL (4.4-10.8)
[2023-12-19 12:03] LABS: Alanine Aminotransferase 19 U/L (7-40); Alkaline Phosphatase 113 U/L (46-116); Anion Gap 6 (5-15); Aspartate Aminotransferase 16 U/L (13-40); BUN/Creatinine Ratio 18.3 (10.0-20.0); Bilirubin, Total 0.5 mg/dL (0.2-1.0); Blood Alcohol 3.1 mg/dL (<10); Blood Urea Nitrogen 11 mg/dL (9-23); Carbon Dioxide 24 mmol/L (20-30); Chloride 110 mmol/L (98-107); Glucose 93 mg/dL (74-106); Potassium 4.2 mmol/L (3.5-5.1); Sodium 140 mmol/L (136-145); Total Protein 6.2 g/dL (5.7-8.2)
[2023-12-19 12:22] LABS: Lipase 34 U/L (12-53)
[2023-12-19] MEDS: metroNIDAZOLE 500MG/100ML 100 ML IV ONE (14:22)
[2023-12-19] MEDS ORDERED: ACETAMINOPHEN 325 MG TAB PO PRN (14:45)
[2023-12-19] MEDS ORDERED: HYDROcodone-ACET 5/325MG TAB PO PRN (14:45)
[2023-12-19] MEDS ORDERED: DOCUSATE SOD 100 MG CAP PO PRN (14:45)
[2023-12-19] MEDS: metroNIDAZOLE 500MG/100ML 100 ML IV SCH (14:47)
[2023-12-19] MEDS: LACTATED RINGER'S 1,000 ML IV ONE (15:14)
[2023-12-19 17:57] VITALS: PULSE 57; RESP 17; O2SAT 98
[2023-12-19 18:01] VITALS: BP 117/62; PULSE 57; RESP 17; TEMP 98.3; O2SAT 98
[2023-12-19 18:23] VITALS: BP 117/62; PULSE 57; RESP 18; TEMP 98.3; O2SAT 98
[2023-12-19] MEDS: HYDROmorphone HCL 2 MG/ML VL/or syr IV PRN (18:35)
[2023-12-19] MEDS ORDERED: BUDE2SUS3 IN (18:42)
[2023-12-19] MEDS ORDERED: DUPI1INJ SC (18:42)
[2023-12-19] MEDS: SODIUM CHLOR 0.9% PF (SALINE LOCK) 10ML VIAL/SYR IV SCH (21:53)
[2023-12-19 22:00] VITALS: BP 127/83; PULSE 79; RESP 18; TEMP 98.1; O2SAT 96
[2023-12-20] VITALS (15 sets, daily range): BP systolic 102–127; BP diastolic 57–83; PULSE 60–85; RESP 15–20; TEMP 97.8–98.8; O2SAT 92–98
[2023-12-20] MEDS: IPRATROPIUM BROM 0.5 MG/2.5ML INH SOL NEB SCH ×2 (01:09→19:25)
[2023-12-20] MEDS: ALBUTEROL SULF 2.5 MG/0.5ML(0.5%) NEB SOLN NEB PRN (07:29)
[2023-12-20] MEDS: cefTRIAXone 1GM/50ML D5W 50 ML IV SCH (09:38)
[2023-12-20] MEDS ORDERED: HYDROcodone-ACET 5/325MG TAB PO PRN (13:00)
[2023-12-20] MEDS: ONDANSETRON HCL 4 MG/2 ML VIAL IV PRN (13:15)
[2023-12-20] MEDS: PANTOPRAZOLE 40 MG/10 ML VIAL INJ IV ONE (13:19)
[2023-12-20] MEDS: ALBUTEROL SULF 2.5 MG/0.5ML(0.5%) NEB SOLN NEB SCH (19:25)
[2023-12-20] MEDS: busPIRone HCL 10 MG TAB PO SCH (21:36)
[2023-12-20] MEDS: clonazePAM 0.5 MG TAB PO SCH (21:37)
[2023-12-21] VITALS (13 sets, daily range): BP systolic 97–120; BP diastolic 55–78; PULSE 62–76; RESP 16–20; TEMP 97.9–98.6; O2SAT 91–99
[2023-12-21 06:21] LABS: Basophils # (auto) 0.1 10 ^3/uL (0-0.2); Basophils % (auto) 0.6 % (0.0-2.0); Eosinophils # (auto) 0.2 10 ^3/uL (0-0.8); Eosinophils % (auto) 1.2 % (0.0-7.0); Hematocrit 35.2 % (36.0-46.0); Hemoglobin 12.1 g/dL (12.2-16.2); Lymphocytes # (auto) 2.3 10 ^3/uL (0.4-5.4); Lymphocytes % (auto) 17.2 % (10.0-50.0); Mean Corpuscular Hemoglobin 30.1 pg (28.0-32.0); Mean Corpuscular Hgb Conc. 34.3 g/dL (32.0-36.0); Mean Corpuscular Volume 87.9 fL (80.0-100.0); Monocytes # (auto) 0.7 10 ^3/uL (0-1.3); Monocytes % (auto) 5.1 % (0.0-12.0); Neutrophils # (auto) 10.2 10 ^3/uL (1.6-8.6); Neutrophils % (auto) 75.9 % (37.0-80.0); Red Blood Cells 4.01 10^6/uL (4.0-5.20); Red Cell Distribution Width 14.5 % (11.8-14.3); White Blood Cell 13.4 10^3/uL (4.4-10.8)
[2023-12-21 06:25] LABS: Chloride 106 mmol/L (98-107); Potassium 3.7 mmol/L (3.5-5.1); Sodium 140 mmol/L (136-145)
[2023-12-21 06:26] LABS: Anion Gap 8 (5-15); Calcium 8.7 mg/dL (8.7-10.4); Carbon Dioxide 26 mmol/L (20-30)
[2023-12-21 06:31] LABS: BUN/Creatinine Ratio 10.7 (10.0-20.0); Blood Urea Nitrogen 6 mg/dL (9-23); Glucose 101 mg/dL (74-106)
[2023-12-21 07:21] LABS: INR 0.99 (0.9-1.15); Partial Thromboplastin Time 28.2 SEC (24.5-34.5); Prothrombin Time 10.5 sec (9.3-11.8)
[2023-12-21] MEDS: PANTOPRAZOLE 40 MG/10 ML VIAL INJ IV SCH (09:02)
[2023-12-21] MEDS: lamoTRIgine 25 MG TAB PO SCH (09:03)
[2023-12-21] MEDS: ACETAMINOPHEN 500 MG TAB PO PRN (14:01)
[2023-12-21] MEDS: SODIUM CHLORIDE 0.9% 1,000 ML IV SCH (14:02)
[2023-12-22] VITALS (14 sets, daily range): BP systolic 106–121; BP diastolic 52–73; PULSE 60–80; RESP 14–20; TEMP 97.4–98.5; O2SAT 91–100
[2023-12-22] MEDS: POLYETHYLENE GLYCOL 17 GM PWDR PO ONE (14:30)
[2023-12-23] VITALS (15 sets, daily range): BP systolic 110–130; BP diastolic 34–83; PULSE 53–99; RESP 16–20; TEMP 97.5–98.5; O2SAT 94–100
[2023-12-23 05:23] LABS: Basophils # (auto) 0.1 10 ^3/uL (0-0.2); Basophils % (auto) 0.7 % (0.0-2.0); Eosinophils # (auto) 0.5 10 ^3/uL (0-0.8); Eosinophils % (auto) 4.1 % (0.0-7.0); Hematocrit 32.1 % (36.0-46.0); Lymphocytes # (auto) 2.6 10 ^3/uL (0.4-5.4); Lymphocytes % (auto) 21.1 % (10.0-50.0); Mean Corpuscular Hemoglobin 30.8 pg (28.0-32.0); Mean Corpuscular Hgb Conc. 34.3 g/dL (32.0-36.0); Mean Corpuscular Volume 89.8 fL (80.0-100.0); Monocytes # (auto) 0.7 10 ^3/uL (0-1.3); Monocytes % (auto) 5.7 % (0.0-12.0); Neutrophils # (auto) 8.5 10 ^3/uL (1.6-8.6); Neutrophils % (auto) 68.4 % (37.0-80.0); Red Blood Cells 3.58 10^6/uL (4.0-5.20); Red Cell Distribution Width 15.2 % (11.8-14.3); White Blood Cell 12.3 10^3/uL (4.4-10.8)
[2023-12-23 08:13] LABS: Alanine Aminotransferase 12 U/L (7-40); Albumin 3.4 g/dL (3.2-4.8); Alkaline Phosphatase 91 U/L (46-116); Anion Gap 6 (5-15); Aspartate Aminotransferase 15 U/L (13-40); Bilirubin, Total 0.5 mg/dL (0.2-1.0); Calcium 8.4 mg/dL (8.7-10.4); Carbon Dioxide 25 mmol/L (20-30); Chloride 112 mmol/L (98-107); Glucose 89 mg/dL (74-106); Potassium 3.6 mmol/L (3.5-5.1); Sodium 143 mmol/L (136-145); Total Protein 5.4 g/dL (5.7-8.2)
[2023-12-23 08:14] LABS: BUN/Creatinine Ratio 8.6 (10.0-20.0); Blood Urea Nitrogen < 5 mg/dL (9-23)
[2023-12-24] VITALS (9 sets, daily range): BP systolic 109–121; BP diastolic 73–77; PULSE 35–80; RESP 14–18; TEMP 97.4–98.1; O2SAT 94–96
[2023-12-24] MEDS: PANTOPRAZOLE 40 MG TAB PO SCH (05:02)
[2023-12-24 06:48] LABS: Basophils # (auto) 0.1 10 ^3/uL (0-0.2); Basophils % (auto) 0.7 % (0.0-2.0); Eosinophils # (auto) 0.5 10 ^3/uL (0-0.8); Eosinophils % (auto) 4.2 % (0.0-7.0); Hematocrit 37.2 % (36.0-46.0); Hemoglobin 11.8 g/dL (12.2-16.2); Lymphocytes # (auto) 2.5 10 ^3/uL (0.4-5.4); Lymphocytes % (auto) 22.1 % (10.0-50.0); Mean Corpuscular Hemoglobin 30.5 pg (28.0-32.0); Mean Corpuscular Hgb Conc. 31.7 g/dL (32.0-36.0); Mean Corpuscular Volume 96.1 fL (80.0-100.0); Monocytes # (auto) 0.7 10 ^3/uL (0-1.3); Monocytes % (auto) 6.1 % (0.0-12.0); Neutrophils # (auto) 7.7 10 ^3/uL (1.6-8.6); Neutrophils % (auto) 66.9 % (37.0-80.0); Nucleated Red Blood Cells % 0.1 %; Red Blood Cells 3.87 10^6/uL (4.0-5.20); White Blood Cell 11.5 10^3/uL (4.4-10.8)
[2023-12-24] MEDS ORDERED: LEVO500T91 PO (10:45)
== END 2023-12-24 12:52 | disposition home or self-care (01) | DRG 872 ==
LOC: ER 10:20 → OVERFLOW 14:40 → WEST WING 17:50
PROVIDERS: ADMIT Internal Medicine; ATTEND Internal Medicine
DX: A41.9 Sepsis, unspecified organism (principal); N39.0 Urinary tract infection, site not specified; Z68.42 Body mass index [BMI] 45.0-49.9, adult; A09 Infectious gastroenteritis and colitis, unspecified; R31.9 Hematuria, unspecified; F20.9 Schizophrenia, unspecified; B96.1 Klebsiella pneumoniae [K. pneumoniae] as the cause of diseases classified elsewhere; J44.9 Chronic obstructive pulmonary disease, unspecified; E66.01 Morbid (severe) obesity due to excess calories; F79 Unspecified intellectual disabilities; G62.9 Polyneuropathy, unspecified; Q78.1 Polyostotic fibrous dysplasia; Z88.6 Allergy status to analgesic agent; Z91.013 Allergy to seafood; Q78.9 Osteochondrodysplasia, unspecified
CPT/HCPCS: 36415; 74176; 80048; 80053; 80320; 81001; 81025; 82270; 82962; 83605; 83690; 84702; 85025; 85610; 85730; 86141; 87040; 87045; 87086; 87088; 87186; 87427; 87493; 94640; G0378; J2405; J2470; J3490

== ENCOUNTER → 2024-01-23 | Outpatient (CLI) | payer OTHER, MEDICAID ==
[~2024-01-23] MED LIST changes: +BUDE2SUS3 IN; +DUPI1INJ SC; -FLUT0.05 NAS; +LEVO500T91 PO; -TRAM50TA2 PO
[2024-01-23 10:12] LABS: Basophils # (auto) 0.1 10 ^3/uL (0-0.2); Basophils % (auto) 0.7 % (0.0-2.0); Eosinophils # (auto) 0.2 10 ^3/uL (0-0.8); Eosinophils % (auto) 1.8 % (0.0-7.0); Hematocrit 38.7 % (36.0-46.0); Lymphocytes # (auto) 2.9 10 ^3/uL (0.4-5.4); Lymphocytes % (auto) 23.3 % (10.0-50.0); Mean Corpuscular Hemoglobin 29.5 pg (28.0-32.0); Mean Corpuscular Hgb Conc. 33.5 g/dL (32.0-36.0); Mean Corpuscular Volume 87.8 fL (80.0-100.0); Monocytes # (auto) 0.8 10 ^3/uL (0-1.3); Neutrophils # (auto) 8.5 10 ^3/uL (1.6-8.6); Neutrophils % (auto) 68.2 % (37.0-80.0); Nucleated Red Blood Cells % 0.1 %; Platelet Count (auto) 399 10^3/uL (140-450); Red Blood Cells 4.41 10^6/uL (4.0-5.20); Red Cell Distribution Width 14.7 % (11.8-14.3); White Blood Cell 12.5 10^3/uL (4.4-10.8)
[2024-01-23 10:35] LABS: Alanine Aminotransferase 15 U/L (7-40); Alkaline Phosphatase 127 U/L (46-116); Anion Gap 5 (5-15); Aspartate Aminotransferase 13 U/L (13-40); BUN/Creatinine Ratio 17.2 (10.0-20.0); Bilirubin, Total 0.5 mg/dL (0.2-1.0); Blood Urea Nitrogen 11 mg/dL (9-23); Carbon Dioxide 26 mmol/L (20-30); Chloride 110 mmol/L (98-107); Glucose 97 mg/dL (74-106); Potassium 3.8 mmol/L (3.5-5.1); Sodium 141 mmol/L (136-145); Total Protein 6.6 g/dL (5.7-8.2)
== END | disposition home or self-care (01) ==
LOC: LAB 09:31
PROVIDERS: ATTEND Internal Medicine Gastroenterology
DX: R10.9 Unspecified abdominal pain (principal); K51.90 Ulcerative colitis, unspecified, without complications; R19.7 Diarrhea, unspecified
CPT/HCPCS: 36415; 80053; 85025; 85048; 86256; 86671; 87493

== ENCOUNTER 2024-02-12 18:31 | Inpatient (IN) | payer OTHER, MEDICAID ==
[~2024-02-12] VITALS: Ht 154.9 cm; Wt 105.5 kg
[2024-02-12 20:07] LABS: Basophils # (auto) 0 10 ^3/uL (0-0.2); Basophils % (auto) 0.2 % (0.0-2.0); Eosinophils # (auto) 0 10 ^3/uL (0-0.8); Hematocrit 40.4 % (36.0-46.0); Hemoglobin 13.6 g/dL (12.2-16.2); Lymphocytes # (auto) 2.1 10 ^3/uL (0.4-5.4); Lymphocytes % (auto) 13.9 % (10.0-50.0); Mean Corpuscular Hemoglobin 29.7 pg (28.0-32.0); Mean Corpuscular Hgb Conc. 33.7 g/dL (32.0-36.0); Mean Corpuscular Volume 88.2 fL (80.0-100.0); Monocytes # (auto) 0.8 10 ^3/uL (0-1.3); Monocytes % (auto) 5.1 % (0.0-12.0); Neutrophils # (auto) 12.3 10 ^3/uL (1.6-8.6); Neutrophils % (auto) 80.8 % (37.0-80.0); Nucleated Red Blood Cells % 0.1 %; Platelet Count (auto) 416 10^3/uL (140-450); Red Blood Cells 4.58 10^6/uL (4.0-5.20); Red Cell Distribution Width 14.7 % (11.8-14.3); White Blood Cell 15.2 10^3/uL (4.4-10.8)
[2024-02-12 20:25] LABS: Alanine Aminotransferase 24 U/L (7-40); Albumin 4.5 g/dL (3.2-4.8); Alkaline Phosphatase 108 U/L (46-116); Anion Gap 6 (5-15); Aspartate Aminotransferase 15 U/L (13-40); BUN/Creatinine Ratio 22.9 (10.0-20.0); Bilirubin, Total 0.5 mg/dL (0.2-1.0); Blood Urea Nitrogen 16 mg/dL (9-23); Calcium 9.6 mg/dL (8.7-10.4); Carbon Dioxide 24 mmol/L (20-30); Chloride 109 mmol/L (98-107); Glucose 105 mg/dL (74-106); Lipase 34 U/L (12-53); Potassium 4.1 mmol/L (3.5-5.1); Sodium 139 mmol/L (136-145)
[2024-02-12 21:00] VITALS: PULSE 73; RESP 16; O2SAT 96
[2024-02-12] MEDS: metroNIDAZOLE 500MG/100ML 100 ML IV ONE (21:30)
[2024-02-12] MEDS: SODIUM CHLORIDE 0.9% 1,000 ML IV ONE (21:30)
[2024-02-12] MEDS ORDERED: VANCOMYCIN HCL 125 MG CAP PO SCH (22:00)
[2024-02-12 23:00] VITALS: PULSE 59; RESP 16; O2SAT 98
[2024-02-12] MEDS: VANCOMYCIN HCL 125 MG CAP PO ONE (23:00)
[2024-02-13] VITALS (12 sets, daily range): BP systolic 96–115; BP diastolic 53–69; PULSE 61–78; RESP 15–19; TEMP 97.4–98.1; O2SAT 95–99
[2024-02-13 01:21] LABS: Urine WBC None Seen /hpf (0 - 5)
[2024-02-13 02:18] LABS: Urine Amorphous Crystal MOD /hpf (None Seen); Urine Bacteria MOD /hpf (None Seen); Urine Blood Negative /uL (Negative); Urine Clarity Ex.Turbid (Clear); Urine Color Brown (Yellow); Urine Mucus FEW (None Seen); Urine Protein, UAD TRACE (Negative); Urine Specific Gravity 1.031 (1.001-1.035); Urine Urobilinogen Normal (Negative)
[2024-02-13 03:26] LABS: Chloride 109 mmol/L (98-107); Potassium 3.3 mmol/L (3.5-5.1); Sodium 139 mmol/L (136-145)
[2024-02-13 03:27] LABS: Anion Gap 6 (5-15); Carbon Dioxide 24 mmol/L (20-30)
[2024-02-13 03:29] LABS: Basophils # (auto) 0.1 10 ^3/uL (0-0.2); Basophils % (auto) 0.6 % (0.0-2.0); Eosinophils # (auto) 0 10 ^3/uL (0-0.8); Eosinophils % (auto) 0.3 % (0.0-7.0); Hematocrit 35.5 % (36.0-46.0); Hemoglobin 11.9 g/dL (12.2-16.2); Lymphocytes # (auto) 3.5 10 ^3/uL (0.4-5.4); Lymphocytes % (auto) 28.1 % (10.0-50.0); Mean Corpuscular Hemoglobin 29.8 pg (28.0-32.0); Mean Corpuscular Hgb Conc. 33.6 g/dL (32.0-36.0); Mean Corpuscular Volume 88.7 fL (80.0-100.0); Monocytes % (auto) 7.7 % (0.0-12.0); Neutrophils # (auto) 7.9 10 ^3/uL (1.6-8.6); Neutrophils % (auto) 63.3 % (37.0-80.0); Nucleated Red Blood Cells % 0.1 %; Platelet Count (auto) 358 10^3/uL (140-450); Red Cell Distribution Width 14.5 % (11.8-14.3); White Blood Cell 12.4 10^3/uL (4.4-10.8)
[2024-02-13 03:32] LABS: Blood Urea Nitrogen 13 mg/dL (9-23); Glucose 98 mg/dL (74-106)
[2024-02-13] MEDS: POTASSIUM CHL 20 Meq TABLET PO ONE (05:15)
[2024-02-13] MEDS: metroNIDAZOLE 500MG/100ML 100 ML IV SCH (05:52)
[2024-02-13] MEDS: VANCOMYCIN HCL 125 MG CAP PO SCH (06:00)
[2024-02-13] MEDS: lamoTRIgine 25 MG TAB PO SCH (09:23)
[2024-02-13] MEDS: busPIRone HCL 10 MG TAB PO SCH (09:23)
[2024-02-13] MEDS: traMADol HCL 50 MG TAB PO PRN (09:23)
[2024-02-13] MEDS ORDERED: POTASSIUM EFFERVESENT TAB 25 MEQ PO ONE (09:30)
[2024-02-13] MEDS ORDERED: PATIENTS OWN MEDICATION (Clonazepam 1 TAB) PO PRN (10:30)
[2024-02-13] MEDS ORDERED: ALBUTEROL SULF HFA 90MCG INH 200DOSE IN PRN (10:30)
[2024-02-13] MEDS ORDERED: clonazePAM 0.5 MG TAB PO PRN (11:00)
[2024-02-13 11:23] LABS: Amphetamine Screen, Urine Neg (NEGATIVE)
[2024-02-13 11:24] LABS: Barbiturate Scree,Urine Neg (NEGATIVE)
[2024-02-13 11:25] LABS: Benzodiazephine Screen, Urine Neg (NEGATIVE); Cannabinoid Screen, Urine Neg (NEGATIVE); Cocaine Screen, Urine Neg (NEGATIVE); Opiate Scree,Urine Neg (NEGATIVE); Phencyclidine Screen, Urine Neg (NEGATIVE)
[2024-02-13] MEDS: cefTRIAXone 1GM/50ML D5W 50 ML IV ONE (11:53)
[2024-02-13] MEDS: PANTOPRAZOLE 40 MG/10 ML VIAL INJ IV ONE (11:53)
[2024-02-13] MEDS: VANCOMYCIN HCL 250 MG CAP PO SCH (11:53)
[2024-02-13] MEDS: SOD CHL 0.9%/ KCL 20MEQ 1,000 ML IV SCH (12:05)
[2024-02-13] MEDS: METHOCARBAMOL 500 MG TAB PO SCH (13:45)
[2024-02-13] MEDS: ALBUTEROL SULF 2.5 MG/0.5ML(0.5%) NEB SOLN NEB PRN (15:04)
[2024-02-13] MEDS: ARIPIPRAZOLE 30 MG PO SCH (21:22)
[2024-02-13] MEDS: FLORASTOR (S. BOULARDII) 250 MG CAP PO SCH (21:23)
[2024-02-13] MEDS ORDERED: PATIENTS OWN MEDICATION (Buspirone Hcl 1 TAB) PO SCH (22:00)
[2024-02-14] VITALS (12 sets, daily range): BP systolic 90–131; BP diastolic 52–74; PULSE 64–77; RESP 18–19; TEMP 97.4–98.2; O2SAT 93–99
[2024-02-14 04:31] LABS: COVID19 ANTIGEN SOFIA FIA NEGATIVE (NEGATIVE)
[2024-02-14] MEDS: PANTOPRAZOLE 40 MG/10 ML VIAL INJ IV SCH (05:53)
[2024-02-14 08:34] LABS: Anion Gap 5 (5-15); Basophils # (auto) 0.1 10 ^3/uL (0-0.2); Basophils % (auto) 0.8 % (0.0-2.0); Carbon Dioxide 26 mmol/L (20-30); Chloride 110 mmol/L (98-107); Eosinophils # (auto) 0.1 10 ^3/uL (0-0.8); Eosinophils % (auto) 1.3 % (0.0-7.0); Hematocrit 35.6 % (36.0-46.0); Hemoglobin 12.2 g/dL (12.2-16.2); Lymphocytes # (auto) 3.3 10 ^3/uL (0.4-5.4); Lymphocytes % (auto) 33.8 % (10.0-50.0); Mean Corpuscular Hemoglobin 30.5 pg (28.0-32.0); Mean Corpuscular Hgb Conc. 34.2 g/dL (32.0-36.0); Mean Corpuscular Volume 89.3 fL (80.0-100.0); Monocytes # (auto) 0.8 10 ^3/uL (0-1.3); Monocytes % (auto) 7.8 % (0.0-12.0); Neutrophils # (auto) 5.6 10 ^3/uL (1.6-8.6); Neutrophils % (auto) 56.3 % (37.0-80.0); Platelet Count (auto) 330 10^3/uL (140-450); Potassium 3.9 mmol/L (3.5-5.1); Red Blood Cells 3.99 10^6/uL (4.0-5.20); Red Cell Distribution Width 14.8 % (11.8-14.3); Sodium 141 mmol/L (136-145); White Blood Cell 9.9 10^3/uL (4.4-10.8)
[2024-02-14 08:35] LABS: Calcium 9.1 mg/dL (8.7-10.4)
[2024-02-14 08:40] LABS: BUN/Creatinine Ratio 13.4 (10.0-20.0); Blood Urea Nitrogen 9 mg/dL (9-23); Glucose 82 mg/dL (74-106)
[2024-02-14] MEDS: cefTRIAXone 1GM/50ML D5W 50 ML IV SCH (09:11)
[2024-02-14] MEDS ORDERED: BUDESONIDE 1 MG IN SCH (10:00)
[2024-02-14] MEDS ORDERED: PATIENTS OWN MEDICATION (Lamotrigine 1 TAB) PO SCH (10:00)
[2024-02-14] MEDS ORDERED: TIOTROPIUM BROMIDE MONOHYDRATE INH SCH (10:00)
[2024-02-14] MEDS: ONDANSETRON HCL 4 MG/2 ML VIAL IV PRN (13:26)
[2024-02-14] MEDS ORDERED: DICYCLOMINE HCL 10 MG CAP PO PRN (21:30)
[2024-02-15] VITALS (11 sets, daily range): BP systolic 101–127; BP diastolic 61–71; PULSE 65–91; RESP 16–18; TEMP 97.3–98.2; O2SAT 90–95
[2024-02-15 06:13] LABS: Anion Gap 5 (5-15); Basophils # (auto) 0.1 10 ^3/uL (0-0.2); Basophils % (auto) 0.6 % (0.0-2.0); Carbon Dioxide 26 mmol/L (20-30); Chloride 108 mmol/L (98-107); Eosinophils # (auto) 0.2 10 ^3/uL (0-0.8); Eosinophils % (auto) 2.4 % (0.0-7.0); Hematocrit 34.2 % (36.0-46.0); Hemoglobin 12.1 g/dL (12.2-16.2); Lymphocytes # (auto) 3.1 10 ^3/uL (0.4-5.4); Lymphocytes % (auto) 30.8 % (10.0-50.0); Mean Corpuscular Hemoglobin 31.5 pg (28.0-32.0); Mean Corpuscular Hgb Conc. 35.3 g/dL (32.0-36.0); Mean Corpuscular Volume 89.3 fL (80.0-100.0); Monocytes # (auto) 0.7 10 ^3/uL (0-1.3); Monocytes % (auto) 6.8 % (0.0-12.0); Neutrophils # (auto) 5.9 10 ^3/uL (1.6-8.6); Neutrophils % (auto) 59.4 % (37.0-80.0); Nucleated Red Blood Cells % 0.1 %; Platelet Count (auto) 324 10^3/uL (140-450); Red Blood Cells 3.84 10^6/uL (4.0-5.20); Red Cell Distribution Width 15.2 % (11.8-14.3); Sodium 139 mmol/L (136-145)
[2024-02-15 06:14] LABS: Calcium 8.9 mg/dL (8.7-10.4)
[2024-02-15 06:18] LABS: Glucose 92 mg/dL (74-106)
[2024-02-15 06:19] LABS: BUN/Creatinine Ratio 7.4 (10.0-20.0); Blood Urea Nitrogen 5 mg/dL (9-23)
[2024-02-15] MEDS: FLORASTOR (S. BOULARDII) 250 MG CAP PO SCH (09:28)
[2024-02-15 13:33] LABS: Urine Bacteria None Seen /hpf (None Seen)
[2024-02-15 14:06] LABS: Urine Blood Negative /uL (Negative); Urine Clarity Clear (Clear); Urine Color Light-Yellow (Yellow); Urine Mucus FEW (None Seen); Urine Protein, UAD Negative (Negative); Urine Specific Gravity 1.012 (1.001-1.035); Urine Urobilinogen Normal (Negative); Urine WBC <1 /hpf (0 - 5)
[2024-02-15] MEDS: cefTRIAXone 1GM/50ML D5W 50 ML IV ONE (15:38)
[2024-02-15] MEDS: SODIUM CHLORIDE 0.9% 500 ML IV ONE (16:18)
[2024-02-16] VITALS (11 sets, daily range): BP systolic 93–116; BP diastolic 46–72; PULSE 66–84; RESP 18–22; TEMP 97.4–98.9; O2SAT 91–95
[2024-02-16 06:59] LABS: Basophils # (auto) 0 10 ^3/uL (0-0.2); Basophils % (auto) 0.4 % (0.0-2.0); Eosinophils # (auto) 0.3 10 ^3/uL (0-0.8); Eosinophils % (auto) 2.6 % (0.0-7.0); Hematocrit 33.4 % (36.0-46.0); Hemoglobin 11.4 g/dL (12.2-16.2); Lymphocytes # (auto) 3.2 10 ^3/uL (0.4-5.4); Lymphocytes % (auto) 28.4 % (10.0-50.0); Mean Corpuscular Hemoglobin 30.1 pg (28.0-32.0); Mean Corpuscular Volume 88.6 fL (80.0-100.0); Monocytes # (auto) 0.7 10 ^3/uL (0-1.3); Monocytes % (auto) 6.1 % (0.0-12.0); Neutrophils % (auto) 62.5 % (37.0-80.0); Platelet Count (auto) 306 10^3/uL (140-450); Red Blood Cells 3.77 10^6/uL (4.0-5.20); Red Cell Distribution Width 15.2 % (11.8-14.3); White Blood Cell 11.1 10^3/uL (4.4-10.8)
[2024-02-16 07:04] LABS: Chloride 108 mmol/L (98-107); Potassium 3.9 mmol/L (3.5-5.1); Sodium 140 mmol/L (136-145)
[2024-02-16 07:05] LABS: Anion Gap 6 (5-15); Carbon Dioxide 26 mmol/L (20-30)
[2024-02-16 07:06] LABS: Calcium 8.9 mg/dL (8.7-10.4)
[2024-02-16 07:11] LABS: Glucose 95 mg/dL (74-106); Magnesium 2.2 mg/dL (1.6-2.6)
[2024-02-16 07:20] LABS: BUN/Creatinine Ratio 7.5 (10.0-20.0); Blood Urea Nitrogen < 5 mg/dL (9-23)
[2024-02-17] VITALS (7 sets, daily range): BP systolic 90–124; BP diastolic 52–73; PULSE 56–79; RESP 17–20; TEMP 97.6–98.6; O2SAT 94–98
[2024-02-17 07:56] LABS: Chloride 107 mmol/L (98-107); Sodium 140 mmol/L (136-145)
[2024-02-17 07:57] LABS: Anion Gap 8 (5-15); Carbon Dioxide 25 mmol/L (20-30)
[2024-02-17 07:58] LABS: Basophils # (auto) 0 10 ^3/uL (0-0.2); Basophils % (auto) 0.4 % (0.0-2.0); Eosinophils # (auto) 0.3 10 ^3/uL (0-0.8); Eosinophils % (auto) 2.2 % (0.0-7.0); Hematocrit 34.2 % (36.0-46.0); Hemoglobin 11.8 g/dL (12.2-16.2); Lymphocytes # (auto) 3.1 10 ^3/uL (0.4-5.4); Lymphocytes % (auto) 26.9 % (10.0-50.0); Mean Corpuscular Hemoglobin 30.8 pg (28.0-32.0); Mean Corpuscular Hgb Conc. 34.6 g/dL (32.0-36.0); Mean Corpuscular Volume 89.1 fL (80.0-100.0); Monocytes # (auto) 0.5 10 ^3/uL (0-1.3); Monocytes % (auto) 4.7 % (0.0-12.0); Neutrophils # (auto) 7.5 10 ^3/uL (1.6-8.6); Neutrophils % (auto) 65.8 % (37.0-80.0); Platelet Count (auto) 311 10^3/uL (140-450); Red Blood Cells 3.83 10^6/uL (4.0-5.20); White Blood Cell 11.4 10^3/uL (4.4-10.8)
[2024-02-17 08:02] LABS: BUN/Creatinine Ratio 7.5 (10.0-20.0); Blood Urea Nitrogen < 5 mg/dL (9-23); Glucose 90 mg/dL (74-106)
[2024-02-17] MEDS: metroNIDAZOLE 500 MG TAB PO ONE (12:07)
[2024-02-17] MEDS: metroNIDAZOLE 500 MG TAB PO SCH (14:35)
[2024-02-17] MEDS: FLORASTOR (S. BOULARDII) 250 MG CAP PO SCH (21:52)
[2024-02-18] VITALS (8 sets, daily range): BP systolic 105–121; BP diastolic 56–74; PULSE 58–109; RESP 14–18; TEMP 98–98.2; O2SAT 95–99
[2024-02-18 07:08] LABS: Basophils # (auto) 0.1 10 ^3/uL (0-0.2); Basophils % (auto) 0.7 % (0.0-2.0); Eosinophils # (auto) 0.2 10 ^3/uL (0-0.8); Eosinophils % (auto) 1.4 % (0.0-7.0); Hemoglobin 12.5 g/dL (12.2-16.2); Lymphocytes # (auto) 3.6 10 ^3/uL (0.4-5.4); Lymphocytes % (auto) 23.6 % (10.0-50.0); Mean Corpuscular Hemoglobin 31.1 pg (28.0-32.0); Mean Corpuscular Hgb Conc. 33.9 g/dL (32.0-36.0); Mean Corpuscular Volume 91.6 fL (80.0-100.0); Monocytes # (auto) 0.9 10 ^3/uL (0-1.3); Monocytes % (auto) 6.1 % (0.0-12.0); Neutrophils # (auto) 10.4 10 ^3/uL (1.6-8.6); Neutrophils % (auto) 68.2 % (37.0-80.0); Platelet Count (auto) 332 10^3/uL (140-450); Red Blood Cells 4.04 10^6/uL (4.0-5.20); Red Cell Distribution Width 15.5 % (11.8-14.3); White Blood Cell 15.2 10^3/uL (4.4-10.8)
[2024-02-18] MEDS ORDERED: CHOLESTYRAMINE 4 GM POWDER GT SCH (11:00)
[2024-02-18] MEDS: ACETAMINOPHEN 325 MG TAB PO PRN (22:11)
[2024-02-19 01:00] VITALS: BP 123/74; PULSE 95; RESP 16; TEMP 97.4; O2SAT 95
[2024-02-19 05:00] VITALS: BP 112/76; PULSE 83; RESP 17; TEMP 98.7; O2SAT 95
[2024-02-19 06:11] LABS: Basophils # (auto) 0.1 10 ^3/uL (0-0.2); Basophils % (auto) 0.5 % (0.0-2.0); Eosinophils # (auto) 0.2 10 ^3/uL (0-0.8); Eosinophils % (auto) 1.6 % (0.0-7.0); Hematocrit 36.4 % (36.0-46.0); Hemoglobin 12.5 g/dL (12.2-16.2); Lymphocytes # (auto) 3.1 10 ^3/uL (0.4-5.4); Lymphocytes % (auto) 25.5 % (10.0-50.0); Mean Corpuscular Hemoglobin 30.7 pg (28.0-32.0); Mean Corpuscular Hgb Conc. 34.4 g/dL (32.0-36.0); Mean Corpuscular Volume 89.1 fL (80.0-100.0); Monocytes # (auto) 0.9 10 ^3/uL (0-1.3); Monocytes % (auto) 7.1 % (0.0-12.0); Neutrophils # (auto) 7.9 10 ^3/uL (1.6-8.6); Neutrophils % (auto) 65.3 % (37.0-80.0); Nucleated Red Blood Cells % 0.3 %; Platelet Count (auto) 319 10^3/uL (140-450); Red Blood Cells 4.09 10^6/uL (4.0-5.20); Red Cell Distribution Width 15.6 % (11.8-14.3); White Blood Cell 12.1 10^3/uL (4.4-10.8)
[2024-02-19 09:00] VITALS: BP 119/63; PULSE 90; RESP 19; TEMP 97.8; O2SAT 94
[2024-02-19 09:31] VITALS: O2SAT 94
[2024-02-19] MEDS ORDERED: VANC250C4 PO (10:51)
[2024-02-19] MEDS ORDERED: SACC250C PO (10:51)
[2024-02-19] MEDS ORDERED: MET500T PO (10:51)
[2024-02-19 10:57] VITALS: BP 119/63; PULSE 90; RESP 19; TEMP 97.8; O2SAT 94
[2024-02-19 12:35] VITALS: BP 112/71; PULSE 87; RESP 16; TEMP 98; O2SAT 96
[2024-02-19] MEDS: CHOLESTYRAMINE 4 GM POWDER PO SCH (12:36)
[2024-02-24] MEDS ORDERED: VANC125C3 PO ×2 (09:41→09:46)
== END 2024-02-19 13:22 | disposition home or self-care (01) | DRG 872 ==
LOC: ER 18:31 → OVERFLOW 23:08 → EAST 02-13 08:57 → WEST WING 02-17 10:52 → EAST 02-17 22:58 → OVERFLOW 02-18 14:15 → EAST 02-18 14:29
PROVIDERS: ADMIT Internal Medicine; ATTEND Internal Medicine
DX: A41.9 Sepsis, unspecified organism (principal); A04.72 Enterocolitis due to Clostridium difficile, not specified as recurrent; Z68.41 Body mass index [BMI] 40.0-44.9, adult; R62.50 Unspecified lack of expected normal physiological development in childhood; J44.89 Other specified chronic obstructive pulmonary disease; D25.9 Leiomyoma of uterus, unspecified; J44.9 Chronic obstructive pulmonary disease, unspecified; F41.9 Anxiety disorder, unspecified; N32.81 Overactive bladder; Z20.822 Contact with and (suspected) exposure to COVID-19; F91.3 Oppositional defiant disorder; G62.9 Polyneuropathy, unspecified; F20.9 Schizophrenia, unspecified; R56.9 Unspecified convulsions; E66.01 Morbid (severe) obesity due to excess calories; Q78.1 Polyostotic fibrous dysplasia; Z88.1 Allergy status to other antibiotic agents; Z91.041 Radiographic dye allergy status; Z88.5 Allergy status to narcotic agent; Z91.013 Allergy to seafood; Z79.899 Other long term (current) drug therapy; Z88.6 Allergy status to analgesic agent; Z82.5 Family history of asthma and other chronic lower respiratory diseases; Z83.3 Family history of diabetes mellitus; Z82.49 Family history of ischemic heart disease and other diseases of the circulatory system
CPT/HCPCS: 36415; 74176; 80048; 80053; 80307; 81001; 83605; 83690; 83735; 84484; 84702; 85025; 85048; 87040; 87045; 87077; 87086; 87186; 87426; 87427; 87493; 94640; G0378; J2405; J2470; J3490

== ENCOUNTER 2024-03-24 09:30 | Day surgery (SDC) | payer OTHER, MEDICAID ==
[2024-03-18 11:45] LABS: Basophils # (auto) 0.1 10 ^3/uL (0-0.2); Basophils % (auto) 0.6 % (0.0-2.0); Eosinophils # (auto) 0 10 ^3/uL (0-0.8); Eosinophils % (auto) 0.3 % (0.0-7.0); Hematocrit 38.1 % (36.0-46.0); Hemoglobin 12.8 g/dL (12.2-16.2); Lymphocytes # (auto) 2.5 10 ^3/uL (0.4-5.4); Lymphocytes % (auto) 17.4 % (10.0-50.0); Mean Corpuscular Hgb Conc. 33.7 g/dL (32.0-36.0); Mean Corpuscular Volume 88.9 fL (80.0-100.0); Monocytes # (auto) 0.9 10 ^3/uL (0-1.3); Monocytes % (auto) 6.2 % (0.0-12.0); Neutrophils # (auto) 10.8 10 ^3/uL (1.6-8.6); Neutrophils % (auto) 75.5 % (37.0-80.0); Platelet Count (auto) 421 10^3/uL (140-450); Red Blood Cells 4.29 10^6/uL (4.0-5.20); Red Cell Distribution Width 14.9 % (11.8-14.3); White Blood Cell 14.4 10^3/uL (4.4-10.8)
[2024-03-18 11:57] LABS: Partial Thromboplastin Time 28.7 SEC (24.5-34.5); Prothrombin Time 10.6 sec (9.3-11.8)
[2024-03-18 12:15] LABS: Alanine Aminotransferase 16 U/L (7-40); Albumin 4.2 g/dL (3.2-4.8); Alkaline Phosphatase 109 U/L (46-116); Anion Gap 6 (5-15); Aspartate Aminotransferase 10 U/L (13-40); BUN/Creatinine Ratio 16.1 (10.0-20.0); Bilirubin, Total 0.6 mg/dL (0.2-1.0); Blood Urea Nitrogen 10 mg/dL (9-23); Calcium 9.3 mg/dL (8.7-10.4); Carbon Dioxide 25 mmol/L (20-31); Chloride 109 mmol/L (98-107); Glucose 91 mg/dL (74-106); Potassium 3.8 mmol/L (3.5-5.1); Sodium 140 mmol/L (136-145); Total Protein 7.1 g/dL (5.7-8.2)
[~2024-03-24] VITALS: Ht 154.9 cm; Wt 104.3 kg
[~2024-03-24 09:30] MED LIST changes: +ACET-1304 PO; -CIPR500T4 PO; +FLUO0.0127 OT; +IBUP-1456 PO; +IPRA0.03; +KETO2CRE4 EX; -LEVO500T91 PO; -MET500T PO; +SACC250C PO
[2024-03-24] MEDS ORDERED: PHENYLEPHRINE HCL 10 MG/ML VL IV ONE (09:31)
[2024-03-24] MEDS ORDERED: SODIUM CHLORIDE LOCK 10 ML ONE (09:38)
[2024-03-24] MEDS ORDERED: MIDAZOLAM HCL 5 MG/ML-1ML VIAL ONE (09:38)
[2024-03-24] MEDS ORDERED: fentaNYL CITRATE 100 MCG/2 ML VL ONE ×2 (09:38→12:31)
[2024-03-24] MEDS ORDERED: diphenhdrAMINE HCL 50 MG/1 ML VL ONE (09:38)
[2024-03-24] MEDS ORDERED: DexAMETHasone SOD PHOS 10MG/1ML VIAL INJ ONE (12:36)
[2024-03-24] MEDS ORDERED: PROPOFOL 10 MG/ML 20 ML IV ONE (12:41)
[2024-03-24 12:52] VITALS: TEMP 98.7
[2024-03-24 13:25] VITALS: BP 106/56; PULSE 56; RESP 18; O2SAT 95
== END 2024-03-24 13:40 | disposition home or self-care (01) ==
LOC: GI 09:30
PROVIDERS: ATTEND Internal Medicine Gastroenterology
DX: K62.5 Hemorrhage of anus and rectum (principal); K52.89 Other specified noninfective gastroenteritis and colitis; K64.8 Other hemorrhoids; E66.01 Morbid (severe) obesity due to excess calories; J44.9 Chronic obstructive pulmonary disease, unspecified; G47.33 Obstructive sleep apnea (adult) (pediatric); F41.9 Anxiety disorder, unspecified; Z68.42 Body mass index [BMI] 45.0-49.9, adult; Z88.6 Allergy status to analgesic agent; Z91.013 Allergy to seafood; Z91.041 Radiographic dye allergy status; Z83.3 Family history of diabetes mellitus; Z82.49 Family history of ischemic heart disease and other diseases of the circulatory system
CPT/HCPCS: 36415; 45380; 80053; 84702; 85025; 85610; 85730; 88305; J1100; J1200; J2250; J2371; J2704; J3010; J7030

== ENCOUNTER 2024-08-02 17:37 | Emergency (ER) | payer OTHER, MEDICAID ==
[~2024-08-02] VITALS: Ht 154.9 cm; Wt 105.2 kg
[2024-08-02 18:54] VITALS: BP 128/60; PULSE 90; RESP 16; TEMP 98; O2SAT 96
--- NOTE | 2024-08-02 19:06 | DVH ---
CLINICAL INDICATION: s/p twisting injury TECHNIQUE: 3 radiographic views of the left ankle were obtained. Comparison: None FINDINGS/IMPRESSION: There is no evidence of acute fracture or dislocation. Bony spurs from the distal medial and lateral malleolus. The visualized joint space is well maintained. The alignment is anatomical. There is no radiopaque foreign body.
--- NOTE | 2024-08-02 19:36 | ED.PDOC ---
Back pain HPI HPI Comments Reports left ankle pain post fall today. States she was standing and washing dishes, slipped on the wet floor. Denies head injury or loss of conciousness. CMS intact. DENIES NUMBNESS, WEAKNESS, OR ANY OTHER KNOWN INJURY. Chief Complaint: Lower Extremity Time Seen by MD: 18:02 Primary Care Provider: milo Reviewed Notes: Nurses Notes, Medications, Allergies Allergies: Coded Allergies: Codeine (Verified Allergy, Unknown, 03/16/19) Fish Allergy (Verified Allergy, Unknown, 03/16/19) Iodine (Verified Allergy, Unknown, 10/31/23) Uncoded Allergies: SHELLFISH (Allergy, Unknown, 10/31/23) Home Meds Active Scripts Yeast (S. Boulardii)(S. Cerevi (Florastor) 250 Mg Cap, 250 MG PO DAILY for 30 Days, #30 CAP Prov:JESUS AGUILAR MD 02/19/24 Reported Medications Ipratropium [place] (Ipratropium [place]) 0.03 % Spr, 0.03 % NA QID, SPRAY 03/23/24 Ketoconazole (Ketoconazole) 2 % Cre, 2 % EX UD, CRE 03/23/24 Fluocinolone Acetonide (Otic) (Dermotic) 0.01 % Oil, 0.01 % OT UD, EA 03/23/24 Ibuprofen (Ibuprofen) 800 Mg Tab, 800 MG PO BID, TAB 03/23/24 Acetaminophen (Tylenol Extra Strength) 500 Mg Tab, 2 TAB PO BID, TAB 03/23/24 Dupilumab (Dupixent) 300 Mg/2 Ml Inj, 300 MG SC, INJ 12/19/23 Budesonide (Inhalation) (Budesonide) 1 Mg/2 Ml Manuela, 1 MG IN DAILY, ML 12/19/23 Tolterodine Tartrate (Tolterodine Tartrate ER) 4 Mg Cap, 1 CAP PO DAILY 10/31/23 Clonazepam (Clonazepam) 1 Mg Tab, 1 TAB PO BIDPRN PRN 10/31/23 Lamotrigine (Lamotrigine) 25 Mg Tab, 1 TAB PO DAILY 10/31/23 Buspirone Hcl (Buspirone Hcl) 30 Mg Tab, 1 TAB PO BID 10/31/23 Methocarbamol (Methocarbamol) 500 Mg Tab, 1 TAB PO TID 10/31/23 Tiotropium [place] Monohydrate (Spiriva Respimat) 2.5 Mcg/Act Spr, 2 PUFF INH DAILY 10/31/23 Diclofenac Sodium (Topical) (Diclofenac Sodium) 1 % Gel, 1 % TD, GEL 03/16/19 Albuterol Sulfate (VENTOLIN MDI) 90 Mcg Ih, 90 MCG IN Q6HP PRN for SHORTNESS OF BREATH for 30 Days, MCG 03/16/19 Rizatriptan Benzoate (RIZATRIPTAN BENZOATE) 10 Mg Tab, 10 MG OR Q8HPRN PRN for MODERATE PAIN, TAB 03/16/19 Aripiprazole (Abilify) 30 Mg Tab, 30 MG PO HS, TAB 03/16/19 Mode of Arrival: Wheelchair Past Medical History PAST MEDICAL HISTORY: Arthritis, Asthma, COPD, Schizophrenia, Seizures Surgical History: Denies all surgeries FIELD HAND History: No Pertinent FIELD HAND History Family History Family History: Reviewed,noncontributory to illness Social History Smoker: Non-Smoker Alcohol: Denies ETOH Use Drugs: Denies Drug Use Lives In: Home Constitutional: denies: chills, diaphoresis, fatigue, fever, malaise, sweats, weakness, others EENTM: denies: blurred vision, double vision, ear bleeding, ear discharge, ear drainage, ear pain, ear ringing, eye pain, eye redness, hearing loss, mouth pain, mouth swelling, nasal discharge, nose bleeding, nose congestion, nose pain, photophobia, tearing, throat pain, throat swelling, voice changes, others Respiratory: denies: cough, hemoptysis, orthopnea, SOB at rest, shortness of breath, SOB with excertion, stridor, wheezing, others Cardiovascular: denies: chest pain, dizzy spells, diaphoresis, Dyspnea on exertion, edema, irregular heart beat, left arm pain, lightheadedness, palpitations, PND, syncope, others Gastrointestinal: denies: abdomen distended, abdominal pain, blood streaked bowels, constipated, diarrhea, dysphagia, difficulty swallowing, hematemesis, melena, nausea, poor appetite, poor fluid intake, rectal bleeding, rectal pain, vomiting, others Genitourinary: denies: abnormal vagina bleeding, burning, dyspareunia, dysuria, flank pain, frequency, hematuria, incontinence, pain, , vagina discharge, urgency, others Neurological: denies: dizziness, fainting, headache, left sided numbness, left sided weakness, numbness, paresthesia, pre-existing deficit, right sided numbness, right sided weakness, seizure, speech problems, tingling, tremors, weakness, others Musculoskeletal: reports: others (left ankle pain); denies: back pain, gout, joint pain, joint swelling, muscle pain, muscle stiffness, neck pain Integumetry: denies: bruises, change in color, change in hair/nails, dryness, laceration, lesions, lumps, rash, wounds, others Allergic/Immunocompromised: denies: Difficulty Healing, Frequent Infections, Hives, Itching, others Hematologic/Lymphatic: denies: anemia, blood clots, easy bleeding, easy bruising, swollen glands, others Endocrine: denies: excessive hunger, excessive sweating, excessive thirst, excessive urination, flushing, intolerance to cold, intolerance to heat, unexplained weight gain, unexplained weight loss, others Psychiatric: denies: anxiety, bipolar disorder, depression, hopeless, panic disorder, schizophrenia, sleepless, suicidal, others Physical Exam General Appearance: No Apparent Distress, Normal HEENT: Pharynx Normal Neck: Full Range of Motion, Non-Tender Respiratory: Chest Non-Tender, Lungs Clear, No Accessory Muscle Use, No Respiratory Distress, Normal Breath Sounds Cardiovascular: No Edema, No Murmur, Normal Peripheral Pulses, Regular Rate/Rhythm Breast Exam: Deferred Gastrointestinal: Non Tender, Soft Genitalia: Deferred Pelvic: Deferred Rectal: Deferred Extremities: Normal capillary refill, Normal inspection, Normal range of motion, Non-tender, No pedal edema Musculoskeletal : Location: Left (Moderate tenderness medial and lateral aspect of right ankle. Noted trace edema no noted ecchymosis lacerations or abrasions strength sensory motion intact positive pedal pulse) Apperance: Normal Neurologic: Alert, city carrier assistant II-XII nml as Tested, No Motor Deficits, Normal Affect, Normal Mood, No Sensory Deficits Cerebellar Function: Normal Reflexes: Normal Skin: Dry, Normal Color, Warm Lymphatic: No Adenopathy Was a procedure done? Was a procedure done?: No Back Pain Differential Dx Differential Diagnosis: Fracture, Musculoskeletal Pain, Strain X-Ray, Labs, Meds, VS Vital Signs Date Time Temp Pulse Resp B/P (MAP) Pulse Ox O2 Delivery O2 Flow Rate FiO2 08/02/24 18:54 90 16 96 Room Air 08/02/24 18:54 98.0 90 16 128/60 (82) 96 98.0 08/02/24 18:00 97.9 88 16 127/61 (83) 96 X-Ray, Labs, Meds, VS Comment Left ankle x-ray shows no acute fractures, osseous lesions, or dislocations. Patient given Toradol 60 mg IM reports improvement in pain and function requesting discharge at this time. Patient discharged with her father. Velcro ankle stirrup placed. Patient currently uses wheelchair and walker at home. Advised on rice. Ibuprofen 800 3 times a day p.r.n., advised her to take the medications as prescribed side effects discussed. Advised to follow up with her PCP in 2-3 days consider repeat imaging in 7 days if symptoms persist. ER return precautions given patient indicates understanding agrees with discharge plan of care. Time of 1ST Reevaluation: 19:36 Reevaluation 1ST: Improved Patient Education/Counseling: Diagnosis, Treatment, Prognosis, Need For Follow Up Family Education/Counseling: Diagnosis, Treatment, Prognosis, Need For Follow Up Departure 1 Departure Time of Disposition: 19:35 Impression: Primary Impression: Left ankle sprain Qualified Codes: S93.402A - Sprain of unspecified ligament of left ankle, initial encounter e-Prescriptions Ibuprofen (Ibuprofen) 800 Mg Tab 1 TAB PO TID PRN for 5 Days, #15 TAB Prov: GERMAINE GOODSON 08/02/24 Discharged With: Relative (Father) Critical Care Note Critical Care Time?: No Stability Stability form required: GERMAINE Bright Aug 02, 2024 19:36
[2024-08-02] MEDS ORDERED: IBUP-1456 PO (19:39)
[2024-08-02] MEDS: KETOROLAC TROMETH 60MG/2ML VIAL IM ONE (19:49)
== END 2024-08-02 20:00 | disposition home or self-care (01) ==
LOC: ER 17:37
DX: S93.402A Sprain of unspecified ligament of left ankle, initial encounter (principal); J44.9 Chronic obstructive pulmonary disease, unspecified; M19.90 Unspecified osteoarthritis, unspecified site; F20.9 Schizophrenia, unspecified; Z79.899 Other long term (current) drug therapy; Z91.013 Allergy to seafood; Z88.5 Allergy status to narcotic agent; Z91.040 Latex allergy status; W01.0XXA Fall on same level from slipping, tripping and stumbling without subsequent striking against object, initial encounter; Y93.G1 Activity, food preparation and clean up; Y92.89 Other specified places as the place of occurrence of the external cause; Y99.8 Other external cause status
CPT/HCPCS: 29515; 73610; 96372; 99283; J1885

== ENCOUNTER 2024-08-17 16:57 | Emergency (ER) | payer OTHER, MEDICAID ==
[~2024-08-17] VITALS: Ht 154.9 cm; Wt 82.0 kg
--- NOTE | 2024-08-17 17:38 | ED.PDOC ---
Musculoskeletal HPI Comments 38- year-old female presents to the ED with a chief complaint of left lower extremity pain x 2 weeks. Patient has a past medical history of arthritis, asthma, COPD, schizophrenia, seizures. She fell on 08/02/24 was seen at [facility], prescribed Ibuprofen for pain. Patient was sent for an ultrasound by PCP today at at 15:30, was told she had a blood clot and was sent to ED. Patient states she is not able to walk or apply pressure due to pain and is also experiencing dysuria. Denies chest pain, shortness of breath, nausea, vomiting, diarrhea, dizziness, hematuria, fever, chills. No other symptoms or modifying factors present at this time. Chief Complaint: Lower Extremity Time Seen by MD: 17:00 Primary Care Provider: unknown Reviewed Notes: Nurses Notes, Medications, Allergies Allergies: Coded Allergies: Codeine (Verified Allergy, Unknown, 03/16/19) Fish Allergy (Verified Allergy, Unknown, 03/16/19) Iodine (Verified Allergy, Unknown, 10/31/23) Uncoded Allergies: SHELLFISH (Allergy, Unknown, 10/31/23) Home Meds Active Scripts Yeast (S. Boulardii)(S. Cerevi (Florastor) 250 Mg Cap, 250 MG PO DAILY for 30 Days, #30 CAP Prov:JESUS AGUILAR MD 02/19/24 Reported Medications Ipratropium [place] (Ipratropium [place]) 0.03 % Spr, 0.03 % NA QID, SPRAY 03/23/24 Ketoconazole (Ketoconazole) 2 % Cre, 2 % EX UD, CRE 03/23/24 Fluocinolone Acetonide (Otic) (Dermotic) 0.01 % Oil, 0.01 % OT UD, EA 03/23/24 Ibuprofen (Ibuprofen) 800 Mg Tab, 800 MG PO BID, TAB 03/23/24 Acetaminophen (Tylenol Extra Strength) 500 Mg Tab, 2 TAB PO BID, TAB 03/23/24 Dupilumab (Dupixent) 300 Mg/2 Ml Inj, 300 MG SC, INJ 12/19/23 Budesonide (Inhalation) (Budesonide) 1 Mg/2 Ml Manuela, 1 MG IN DAILY, ML 12/19/23 Tolterodine Tartrate (Tolterodine Tartrate ER) 4 Mg Cap, 1 CAP PO DAILY 10/31/23 Clonazepam (Clonazepam) 1 Mg Tab, 1 TAB PO BIDPRN PRN 10/31/23 Lamotrigine (Lamotrigine) 25 Mg Tab, 1 TAB PO DAILY 10/31/23 Buspirone Hcl (Buspirone Hcl) 30 Mg Tab, 1 TAB PO BID 10/31/23 Methocarbamol (Methocarbamol) 500 Mg Tab, 1 TAB PO TID 10/31/23 Tiotropium [place] Monohydrate (Spiriva Respimat) 2.5 Mcg/Act Spr, 2 PUFF INH DAILY 10/31/23 Diclofenac Sodium (Topical) (Diclofenac Sodium) 1 % Gel, 1 % TD, GEL 03/16/19 Albuterol Sulfate (VENTOLIN MDI) 90 Mcg Ih, 90 MCG IN Q6HP PRN for SHORTNESS OF BREATH for 30 Days, MCG 03/16/19 Rizatriptan Benzoate (RIZATRIPTAN BENZOATE) 10 Mg Tab, 10 MG OR Q8HPRN PRN for MODERATE PAIN, TAB 03/16/19 Aripiprazole (Abilify) 30 Mg Tab, 30 MG PO HS, TAB 03/16/19 Information Source: Patient, Relative (Mother) Mode of Arrival: Ambulatory Location: Left Extremity Location: Ankle Timing: Weeks Prehospital treatment: Pain Meds Severity: Moderate Able to Move Extremity: Yes Bear Weight: Limited Pain: Moderate Circumstances: Fall Onset of Symptoms: After Trauma Symptoms: Swelling, Pain DVT Risk Factors: NONE History of: Arthritis Associated signs and symptoms: Ankle pain Past Medical History PAST MEDICAL HISTORY: Arthritis, Asthma, COPD, Schizophrenia, Seizures Surgical History: Denies all surgeries LEAD GENERATION SPECIALIST History: No Pertinent LEAD GENERATION SPECIALIST History Family History Family History: Reviewed,noncontributory to illness Social History Smoker: Non-Smoker Alcohol: Denies ETOH Use Drugs: Denies Drug Use Lives In: Home Constitutional: denies: chills, diaphoresis, fatigue, fever, malaise, sweats, weakness, others EENTM: denies: blurred vision, double vision, ear bleeding, ear discharge, ear drainage, ear pain, ear ringing, eye pain, eye redness, hearing loss, mouth pain, mouth swelling, nasal discharge, nose bleeding, nose congestion, nose pain, photophobia, tearing, throat pain, throat swelling, voice changes, others Respiratory: denies: cough, hemoptysis, orthopnea, SOB at rest, shortness of breath, SOB with excertion, stridor, wheezing, others Cardiovascular: denies: chest pain, dizzy spells, diaphoresis, Dyspnea on exertion, edema, irregular heart beat, left arm pain, lightheadedness, palpitations, PND, syncope, others Gastrointestinal: denies: abdomen distended, abdominal pain, blood streaked bowels, constipated, diarrhea, dysphagia, difficulty swallowing, hematemesis, melena, nausea, poor appetite, poor fluid intake, rectal bleeding, rectal pain, vomiting, others Genitourinary: reports: dysuria; denies: abnormal vagina bleeding, burning, dyspareunia, flank pain, frequency, hematuria, incontinence, pain, , vagina discharge, urgency, others Neurological: denies: dizziness, fainting, headache, left sided numbness, left sided weakness, numbness, paresthesia, pre-existing deficit, right sided numbness, right sided weakness, seizure, speech problems, tingling, tremors, weakness, others Musculoskeletal: reports: others (LT ankle pain); denies: back pain, gout, joint pain, joint swelling, muscle pain, muscle stiffness, neck pain Integumetry: denies: bruises, change in color, change in hair/nails, dryness, laceration, lesions, lumps, rash, wounds, others Allergic/Immunocompromised: denies: Difficulty Healing, Frequent Infections, Hives, Itching, others Hematologic/Lymphatic: denies: anemia, blood clots, easy bleeding, easy bruising, swollen glands, others Endocrine: denies: excessive hunger, excessive sweating, excessive thirst, excessive urination, flushing, intolerance to cold, intolerance to heat, unexplained weight gain, unexplained weight loss, others Psychiatric: denies: anxiety, bipolar disorder, depression, hopeless, panic disorder, schizophrenia, sleepless, suicidal, others All Other Systems: Reviewed and Negative Physical Exam General Appearance: No Apparent Distress, Normal HEENT: Normal ENT Inspection, Pharynx Normal, TMs Normal Neck: Full Range of Motion, Non-Tender, Normal, Normal Inspection Respiratory: Chest Non-Tender, Lungs Clear, No Accessory Muscle Use, No Respiratory Distress, Normal Breath Sounds Cardiovascular: No Edema, No JVD, No Murmur, No Gallop, Normal Peripheral Pulses, Regular Rate/Rhythm Breast Exam: Deferred Gastrointestinal: No Organomegaly, Non Tender, No Pulsatile Mass, Normal Bowel Sounds, Soft Genitalia: Deferred Pelvic: Deferred Rectal: Deferred Extremities: Other (Homans sign negative. No unilateral swelling noted. Multiple bruises noted bilaterally. No obvious deformity or swelling noted to the left ankle) Musculoskeletal : Apperance: Normal Neurologic: Alert, manager process improvement II-XII nml as Tested, No Motor Deficits, Normal Affect, Normal Mood, No Sensory Deficits Cerebellar Function: Normal Reflexes: Normal Skin: Bruises (bilateral lower extremities), Dry, Warm Lymphatic: No Adenopathy Was a procedure done? Was a procedure done?: No Differential Diagnosis EXT Differential Diagnosis: Deep Vein Thrombosis, Fracture, Sprain, Contusion, Strain, Neurovascular injury, Arthritis X-Ray, Labs, Meds, VS Vital Signs Date Time Temp Pulse Resp B/P (MAP) Pulse Ox O2 Delivery O2 Flow Rate FiO2 08/17/24 17:24 98.6 96 16 133/67 (89) 100 98.6 Lab Test 08/17/24 18:01 08/17/24 17:20 Range/Units White Blood Count 13.6 H 4.4-10.8 10^3/uL Red Blood Count 4.13 4.0-5.20 10^6/uL Hemoglobin 12.1 L 12.2-16.2 g/dL Hematocrit 36.9 36.0-46.0 % Mean Corpuscular Volume 89.4 80.0-100.0 fL Mean Corpuscular Hemoglobin 29.4 28.0-32.0 pg Mean Corpuscular Hemoglobin Concent 32.9 32.0-36.0 g/dL Red Cell Distribution Width 15.8 H 11.8-14.3 % Platelet Count 376 140-450 10^3/uL Mean Platelet Volume 7.4 6.9-10.8 fL Neutrophils (%) (Auto) 66.8 37.0-80.0 % Lymphocytes (%) (Auto) 23.0 10.0-50.0 % Monocytes (%) (Auto) 6.0 0.0-12.0 % Eosinophils (%) (Auto) 3.4 0.0-7.0 % Basophils (%) (Auto) 0.8 0.0-2.0 % Neutrophils # (Auto) 9.1 H 1.6-8.6 10 ^3/uL Lymphocytes # (Auto) 3.1 0.4-5.4 10 ^3/uL Monocytes # (Auto) 0.8 0-1.3 10 ^3/uL Eosinophils # (Auto) 0.5 0-0.8 10 ^3/uL Basophils # (Auto) 0.1 0-0.2 10 ^3/uL Nucleated Red Blood Cells 0.1 % Prothrombin Time 10.2 9.3-11.8 sec Prothrombin Time INR 0.96 0.9-1.15 Activated Partial Thromboplast Time 28.0 24.5-34.5 SEC Sodium Level 139 136-145 mmol/L Potassium Level 3.7 3.5-5.1 mmol/L Chloride Level 105 98-107 mmol/L Carbon Dioxide Level 24 20-31 mmol/L Anion Gap 10 5-15 Blood Urea Nitrogen 15 9-23 mg/dL Creatinine 0.74 0.550-1.02 mg/dL Glomerular Filtration Rate Calc 106 >90 mL/min BUN/Creatinine Ratio 20.3 H 10.0-20.0 Serum Glucose 123 H 74-106 mg/dL Calcium Level 9.0 8.7-10.4 mg/dL Total Bilirubin 0.6 0.2-1.0 mg/dL Aspartate Amino Transferase (AST) 11 L 13-40 U/L Alanine Aminotransferase (ALT) < 9 7-40 U/L Alkaline Phosphatase 114 46-116 U/L Total Protein 6.8 5.7-8.2 g/dL Albumin 4.3 3.2-4.8 g/dL Urine Color Light-yellow Yellow Urine Clarity Clear Clear Urine pH 5.0 5.0-9.0 Urine Specific [place] 1.011 1.001-1.035 Urine Protein Negative Negative Urine Ketones Negative Negative Urine Blood Negative Negative /uL Urine Nitrite Negative Negative Urine Bilirubin Negative Negative Urine Urobilinogen Normal Negative mg/dL Urine Leukocyte Esterase Negative Negative /uL Urine RBC <1 0 - 4 /hpf Urine Microscopic WBC 0-5 /HPF Urine Squamous Epithelial Cells Few <5 /hpf Urine Bacteria Few H None Seen /hpf Urine Glucose Normal Normal mg/dL X-Ray, Labs, Meds, VS Comment Left Lower Extremity US Impression: 1. No sonographic evidence of deep venous thrombosis throughout the left lower extremity from the popliteal vein to the common femoral vein. Right Lower Extremity US Impression: 1. No right femoropopliteal venous thrombosis. MDM: Patient with history as above presented with left lower extremity pain. History obtained from patient and mother. Patient was nontoxic, stable, afebrile, in wheelchair, no acute distress. Exam as above. Labs reviewed. CBC showed mild leukocytosis of 13.6. CMP did not show significant electrolyte abnormalities. Normal renal function. Normal liver functions. Normal coagulation panel. Independently reviewed imaging. Bilateral lower extremity ultrasound did not show any DVTs. Reviewed external records. All findings were discussed with the patient. Differential diagnosis considered. Overall presentation is consistent with chronic lower extremity pain. Low suspicion for DVT, acute fracture, dislocation, UTI, pyelonephritis, sepsis. Patient was treated with Toradol with improvement in symptoms. Patient was reevaluated and vital signs were reviewed. Consideration was given for admission, but the patient was stable for outpatient management. Disposition: Discussed the need to follow up diagnostics, including incidental findings. Discharged the patient with instructions to obtain outpatient follow up in 1-2 days of today's symptoms and findings, with strict return precautions if patient develops new or worsening symptoms. This medical document was created using the [employer] dictation system. Although this document has been carefully reviewed, there may still be some phonetic and typographical errors, which are due to imperfections of the [employer] program, and do not reflect any compromise in the patient's medical care. Time of 1ST Reevaluation: 17:30 Reevaluation 1ST: Unchanged Time of 2ND Reevaluation: 20:27 Reevaluation 2ND: Improved Patient Education/Counseling: Diagnosis, Treatment, Prognosis Family Education/Counseling: Diagnosis, Treatment, Prognosis Departure 1 Departure Time of Disposition: 20:26 Impression: Primary Impression: Left leg pain Additional Impression: Left ankle sprain Qualified Codes: S93.402D - Sprain of unspecified ligament of left ankle, subsequent encounter Disposition: 01 HOME / SELF CARE / HOMELESS Condition: Fair Critical Care Note Critical Care Time?: No Stability Stability form required: No Heart Score Heart Score: Heart Score Response (Comments) Value History N/A 0 EKG N/A 0 Age N/A 0 Risk Factors N/A 0 Troponin N/A 0 Total 0 I personally scribed for LEONID BASILIO MD ([email or web address]) on 08/17/24 at 17:47. Electronically submitted by Nancy Orlando ([email or web address]). I personally scribed for LEONID BASILIO MD ([email or web address]) on 08/17/24 at 17:49. Electronically submitted by Nancy Orlando ([email or web address]). PATSY NARANJO [facility] Aug 17, 2024 17:38 LEONID BASILIO MD Aug 17, 2024 17:47
--- NOTE | 2024-08-17 18:13 | DVH ---
EXAM: US LT LOWER DVT Clinical History: R/o DVT Comparison: None Technique: Duplex Doppler evaluation of the deep venous systems of the left lower extremity from the common femo ral veins to the popliteal veins including color Doppler and spectral/pulsed waveform analysis was pe rformed. Findings: No visible intraluminal venous thrombus. No evidence of incompressibility or abnormal color or spectr al Doppler flow visualized in the deep left lower extremity veins. Proximal greater saphenous vein is grossly unremarkable. Impression: 1. No sonographic evidence of deep venous thrombosis throughout the left lower extremity from the pop liteal vein to the common femoral vein.
[2024-08-17 18:21] LABS: Basophils # (auto) 0.1 10 ^3/uL (0-0.2); Basophils % (auto) 0.8 % (0.0-2.0); Eosinophils # (auto) 0.5 10 ^3/uL (0-0.8); Eosinophils % (auto) 3.4 % (0.0-7.0); Hematocrit 36.9 % (36.0-46.0); Hemoglobin 12.1 g/dL (12.2-16.2); Lymphocytes # (auto) 3.1 10 ^3/uL (0.4-5.4); Mean Corpuscular Hemoglobin 29.4 pg (28.0-32.0); Mean Corpuscular Hgb Conc. 32.9 g/dL (32.0-36.0); Mean Corpuscular Volume 89.4 fL (80.0-100.0); Monocytes # (auto) 0.8 10 ^3/uL (0-1.3); Neutrophils # (auto) 9.1 10 ^3/uL (1.6-8.6); Neutrophils % (auto) 66.8 % (37.0-80.0); Nucleated Red Blood Cells % 0.1 %; Platelet Count (auto) 376 10^3/uL (140-450); Red Blood Cells 4.13 10^6/uL (4.0-5.20); Red Cell Distribution Width 15.8 % (11.8-14.3); White Blood Cell 13.6 10^3/uL (4.4-10.8)
[2024-08-17 18:37] LABS: INR 0.96 (0.9-1.15); Prothrombin Time 10.2 sec (9.3-11.8)
[2024-08-17 18:38] LABS: Albumin 4.3 g/dL (3.2-4.8); Alkaline Phosphatase 114 U/L (46-116); Anion Gap 10 (5-15); BUN/Creatinine Ratio 20.3 (10.0-20.0); Blood Urea Nitrogen 15 mg/dL (9-23); Carbon Dioxide 24 mmol/L (20-31); Chloride 105 mmol/L (98-107); Potassium 3.7 mmol/L (3.5-5.1); Sodium 139 mmol/L (136-145); Total Protein 6.8 g/dL (5.7-8.2)
[2024-08-17 18:39] LABS: Bilirubin, Total 0.6 mg/dL (0.2-1.0)
[2024-08-17 18:44] LABS: Alanine Aminotransferase < 9 U/L (7-40); Aspartate Aminotransferase 11 U/L (13-40); Glucose 123 mg/dL (74-106)
--- NOTE | 2024-08-17 19:18 | DVH ---
Right lower extremity venous duplex Clinical History: R/o DVT, patient had positive US at [facility] Comparison: US LT LOWER DVT on DOS: 08/17/24 Technique: Duplex Doppler evaluation of the deep venous system of the right lower extremity from the common femo ral vein to the popliteal vein including color Doppler and spectral/pulsed waveform analysis was perf ormed. Findings: The common femoral vein demonstrates appropriate compressibility and waveform variability. There is compressibility/patency of the great saphenous vein at the proximal thigh. The femoral vein demonstrates appropriate compressibility and waveform variability. The deep femoral vein demonstrates appropriate compressibility and waveform variability. The popliteal vein demonstrates appropriate compressibility and waveform variability. There is normal compressibility at the tibioperoneal trunk. Impression: 1. No right femoropopliteal venous thrombosis.
[2024-08-17 19:54] LABS: Urine Bacteria FEW /hpf (None Seen); Urine Blood Negative /uL (Negative); Urine Clarity Clear (Clear); Urine Color Light-Yellow (Yellow); Urine Protein, UAD Negative (Negative); Urine Specific Gravity 1.011 (1.001-1.035); Urine Squamous Epithelial Cell FEW /hpf (<5); Urine Urobilinogen Normal (Negative)
[2024-08-17] MEDS: KETOROLAC TROMETH 30 MG/ML 1ML VIAL IM ONE (21:21)
[2024-08-17 21:25] VITALS: BP 99/56; PULSE 83; RESP 17; TEMP 98; O2SAT 97
== END 2024-08-17 21:34 | disposition home or self-care (01) ==
LOC: ER 16:57
DX: S93.402A Sprain of unspecified ligament of left ankle, initial encounter (principal); M79.605 Pain in left leg; M19.90 Unspecified osteoarthritis, unspecified site; J44.9 Chronic obstructive pulmonary disease, unspecified; F20.9 Schizophrenia, unspecified; Z88.5 Allergy status to narcotic agent; Z91.013 Allergy to seafood; Z91.040 Latex allergy status; Z79.899 Other long term (current) drug therapy; W19.XXXA Unspecified fall, initial encounter; Y93.89 Activity, other specified; Y92.89 Other specified places as the place of occurrence of the external cause; Y99.8 Other external cause status
CPT/HCPCS: 36415; 80053; 81001; 85025; 85610; 85730; 93971; 96372; 99285; J1885

== ENCOUNTER 2025-02-08 08:42 | Outpatient (CLI) | payer OTHER, MEDICAID ==
[2025-02-08 09:18] LABS: Hematocrit 41.1 % (36.0-46.0); Hemoglobin 14.2 g/dL (12.2-16.2); Mean Corpuscular Hemoglobin 31.2 pg (28.0-32.0); Mean Corpuscular Volume 90.2 fL (80.0-100.0); Nucleated Red Blood Cells % 0.0 %
[2025-02-08 09:43] LABS: Alanine Aminotransferase 19 U/L (7-40); Albumin 4.4 g/dL (3.2-4.8); Anion Gap 12 (5-15); BUN/Creatinine Ratio 9.4 (10.0-20.0); Calcium 9.2 mg/dL (8.7-10.4); Carbon Dioxide 22 mmol/L (20-31); Potassium 4.1 mmol/L (3.5-5.1); Sodium 141 mmol/L (136-145); Total Protein 7.4 g/dL (5.7-8.2); Triglycerides 70 mg/dL (< 150)
[2025-02-08 09:44] LABS: Alkaline Phosphatase 120 U/L (46-116); Bilirubin, Total 0.9 mg/dL (0.2-1.0); Blood Urea Nitrogen 6 mg/dL (9-23); Chloride 107 mmol/L (98-107); Cholesterol 204 mg/dL (< 200); Glucose 126 mg/dL (74-106); HDL Cholesterol 67 mg/dL (40-59)
== END 2025-02-08 17:00 | disposition home or self-care (01) ==
LOC: LAB 08:42
PROVIDERS: ATTEND Internal Medicine Gastroenterology
DX: K29.00 Acute gastritis without bleeding (principal); K59.02 Outlet dysfunction constipation
CPT/HCPCS: 36415; 80053; 80061; 82951; 83036; 85025